=== PATIENT | male | born 1965 | race Caucasian/White ===

== ENCOUNTER 2020-03-26 09:50 | Observation (INO) | payer BC, SELFPAY ==
[2020-03-26] VITALS (14 sets, daily range): BP systolic 140–185; BP diastolic 89–114; PULSE 63–99; RESP 12–20; TEMP 36.2–36.7; O2SAT 92–99; BMI 35.0
--- NOTE | 2020-03-26 09:54 | ED_ITS ---
HPI - General Adult General Chief complaint: Upper Respiratory Symptoms Stated complaint: Hard time Breathing on and off Time Seen by Provider: 03/26/20 09:51 Source: patient Mode of arrival: Ambulatory Limitations: no limitations History of Present Illness HPI narrative: 57-year-old male here for evaluation of what he states is a swollen throat and a hard time breathing. States that last evening and went to bed in his normal state health. Woke up early this morning with what he thought was a swollen throat and hard time breathing. He states that very quickly after he woke up he felt like things ?opened up ?and very shortly after that he had a resolution of symptoms back to his baseline. He then took his morning blood pressure medications. Went to work and stated that the symptoms happened again. He states the was not as bad this time as it was 1st thing in the morning. He states that currently his symptoms have improved somewhat from the 2nd onset however he has not back at baseline. He states he feels like he can feel the uvula on the back of his throat. He does not have a sore throat. No sinus congestion. No coughing. He states that several months ago he had medications changed by his smt technician. He does not know what medications he was on over is currently on. He states that he has since run out of these new medications and has not been able to get in to see his smt technician so he started taking his old medications once again. He does not 1 of those medications is lisinopril however he has never had any issues like this in the past. Related Data Home Medications Medication Instructions Recorded Confirmed aspirin 81 mg PO DAILY 03/26/20 03/26/20 atorvastatin 40 mg PO DAILY 03/26/20 03/26/20 lisinopril-hydrochlorothiazide 1 tab PO DAILY 03/26/20 03/26/20 Allergies Allergy/AdvReac Type Severity Reaction Status Date / Time No Known Drug Allergies Allergy Verified 03/26/20 10:08 Review of Systems Constitutional Constitutional: Denies fever(s) and Denies headache(s) Eyes Eyes: Denies change in vision ENT Ears, Nose, Mouth, and Throat: Reports dry mouth, Denies headache(s), Denies hoarseness, Denies lip swelling, Denies nasal congestion, Denies nasal discharge, Denies neck mass, Denies post nasal drip, Denies sore throat and Reports throat swelling Comments: Lip tingling Cardiovascular Cardiovascular: Denies chest pain and Reports dyspnea Respiratory Respiratory: Denies cough and Reports dyspnea Gastrointestinal Gastrointestinal: Denies abdominal pain, Denies nausea and Denies vomiting Musculoskeletal Musculoskeletal: Denies myalgias and Denies arthralgias Integumentary/Breasts Skin/Breast: Denies lesions and Denies rash Neurologic Neurologic: Denies behavioral changes and Denies headache(s) Psychiatric Psychiatric: Denies behavioral changes Hematologic/Lymphatic Hematologic/Lymphatic: Denies easy bleeding and Denies easy bruising Allergic/Immunologic Allergic/Immunologic: Denies lip swelling and Reports throat swelling Patient History Medical History Hyperlipidemia (Acute) Hypertension (Acute) Social History Smoking Status: Never smoker Exam Initial Vital Signs Initial Vital Signs: Vital Signs Pulse Rate 94 H 03/26/20 09:50 Respiratory Rate 20 03/26/20 09:50 Blood Pressure 185/107 H 03/26/20 09:50 Pulse Oximetry 99 03/26/20 09:50 Const General: cooperative, comfortable, well developed and well groomed Limitations: mental status not altered HENMT Head: normal to inspection and normocephalic Ears: TM's normal bilaterally Nose: external nose normal and nares normal Face and sinus: normal facial exam Mouth: oral mucosae normal, lip normal, No drooling and No muffled voice Teeth and gingiva: dentition normal Throat: uvula midline, abnormal tonsil bilaterally hypertrophy; no erythema and uvular edema Neck Neck: full ROM Lymphatic: No lymphedema and No lymphadenopathy Resp Effort & Inspection: normal respiratory effort Auscultation: clear to auscultation bilaterally Cardio Rate: regular rate Rhythm: regular rhythm Skin Lesions: no lesions Rashes: no rashes Neuro General: alert, awake and oriented x3 Cognition: normal cognition Speech: speech normal Extrem General: normal to inspection and capillary refill normal Psych Appearance: grossly normal and well kempt Course Orders Ordered: ED Orders 03/26/20 10:00 Complete Blood Count AUTO DIFF Stat Comprehensive Metabolic Panel Stat Lipase Stat Procalcitonin Stat Troponin I Stat 03/26/20 10:02 EKG-12 Lead Stat 03/26/20 10:16 CT soft tissue neck w con Stat Discontinued Medications Diphenhydramine HCl (Benadryl) 25 mg IV NOW ONE Stop: 03/26/20 10:07 Last Admin: 03/26/20 10:09 Dose: 25 mg Documented by: PAPITO Methylprednisolone (Solu-Medrol 125 Mg Vial) 125 mg IV NOW ONE Stop: 03/26/20 10:07 Last Admin: 03/26/20 10:09 Dose: 125 mg Documented by: PAPITO Metoprolol Tartrate (Lopressor) 50 mg PO NOW ONE Stop: 03/26/20 12:14 Vital Signs Vital signs: Vital Signs - 8 hr 03/26/20 09:50 03/26/20 10:17 03/26/20 10:57 Pulse Rate 94 H 98 H 79 Respiratory Rate 20 20 14 Blood Pressure 185/107 H Blood Pressure [Left Arm] 178/105 H 165/98 H Pulse Oximetry 99 94 94 03/26/20 11:21 Pulse Rate 85 Respiratory Rate 16 Blood Pressure Blood Pressure [Left Arm] 167/109 H Pulse Oximetry 97 Medical Decision Making Lab Data Lab results reviewed: Yes I reviewed the patient's lab results. Result diagrams: 03/26/20 10:00 03/26/20 10:00 Labs: Lab Results 03/26/20 03/26/20 03/26/20 Range/Units 10:00 10:00 10:00 WBC 4.0 L (4.5-11.0) X10^3/uL RBC 4.52 (4.5-5.9) X10^6/uL Hgb 14.6 (13.5-17.5) g/dL Hct 41.9 (41-53) % MCV 92.8 (80-100) fL MCH 32.2 (26-34) PG MCHC 34.7 (30-36) % RDW 13.6 (11.6-14.8) % Plt Count 199 (150-400) X10^3/uL Neut % (Auto) 51.5 (50-75) % Lymph % (Auto) 38.4 (25-40) % [place] % (Auto) 7.4 (3-14) % Eos % (Auto) 1.5 L (2-4) % Baso % (Auto) 1.2 (0-2) % Neut # (Auto) 2000 (6316-6321) /uL Lymph # (Auto) 1500 (3021-0879) /uL [place] # (Auto) 300 (0-900) /uL Eos # (Auto) 100 (0-450) /uL Baso # (Auto) 0 (0-100) /uL Sodium 137 (137-145) mmol/L Potassium 4.1 (3.4-5.1) mmol/L Chloride 108 H (98-107) mmol/L Carbon Dioxide 23 (22-32) mmol/L BUN 18 (9-20) mg/dL Creatinine 1.14 (0.66-1.25) mg/dL Estimated GFR > 60.0 (>60) mL/min BUN/Creatinine Ratio 15.8 (6-22) Glucose 135 H (70-100) mg/dL Calcium 9.1 (8.4-10.2) mg/dL Total Bilirubin 0.4 (0.2-1.3) mg/dL AST 28 (17-59) IU/L ALT 30 (<50) IU/L Alkaline Phosphatase 77 (38-126) U/L Troponin I < 0.012 (0.01-0.034) ng/mL Total Protein 7.6 (6.3-8.2) g/dL Albumin 4.4 (3.5-5.0) g/dL Globulin 3.2 (1.7-4.1) g/dL Albumin/Globulin Ratio 1.4 (1.0-2.8) Lipase 233 (23-300) U/L Procalcitonin < 0.05 (<0.5) ng/mL Imaging Data CT soft tissue neck: Radiologist's Impression: [address] [address] [address] Scan Report Signed Patient: Logan Springer [facility]#: [id number] : 1965Acct:[id number] Age/Sex: 54 / MDate of Service: 03/26/20 Loc: ED Accession Number: [id number] Procedure: CT soft tissue neck w con Ordering Provider: Luis Reveles D.O. PROCEDURE: CT SOFT TISSUE NECK W CON INDICATIONS: Swollen throat TECHNIQUE: After the administration of intravenous contrast, 3.0 mm axial sections acquired from the sella to the aortic arch. Additional oblique axial 3.0 mm sections acquired through the pharynx. 3 mm thick coronal and sagittal reformats were generated. For radiation dose reduction, the following was used: automated exposure control. COMPARISON: None. FINDINGS: Image quality: Excellent. Lymph nodes: No enlarged lymph nodes seen throughout the neck. Vessels: Visualized vasculature appears patent. Neck spaces: The oropharynx, nasopharynx, and pharynx demonstrate no mucosal lesions. The vocal cords, false vocal cords, pyriform sinuses, epiglottis, vallecula, and tongue base all appear normal. Extramucosal spaces appear unremarkable except for relative prominence of soft tissue thickening at the tonsillar pillars bilaterally and the adenoidal area.. Glands: The parotid and submandibular glands appear normal. Thyroid gland appears normal where well seen except for what appears to be a 1.4 cm thyroid nodule posteriorly at the right mid gland. Miscellaneous: Visualized brain and orbits appear normal. Lung apices appear clear. Superficial soft tissues appear normal. Bones: No suspicious bony lesions. Visualized sinuses and mastoids appear unremarkable. IMPRESSION: A parapharyngeal abscess is not found. No adenopathy is seen. Note is made of prominence of the soft tissues at the tonsillar pillars bilaterally and the adenoidal area symmetrically. Etiology is indeterminate but most likely inflammatory in this clinical circumstance. Incidental note is made of what appears to be 1.4 cm nodule at the posterior aspect of the middle third of the right thyroid lobe. Dictated by: Gordon Crews M.D. on 03/26/2020 at 11:12 Approved by: Gordon Crews M.D. on 03/26/2020 at 11:16 ECG Data Attestation: I personally reviewed and interpreted this ECG as follows: Prior ECG tracings: not available for review Interpretation: Normal sinus rhythm Ventricular rate 81 Normal QRS Normal QTC No ST T wave changes MDM Narrative Medical decision making narrative: Patient maintaining secretions. Does have some oropharyngeal swelling on exam. CT scan shows soft tissue swelling in this area but no signs of deep abscess. Patient does not have any other symptoms that I would be concerned about anaphylaxis. I do have concern that potentially his lisinopril is causing angioedema. His tongue is not swollen. Oxygen saturations unremarkable. Has not required oxygen. Is also tolerating ice chips. Was given Solu-Medrol and Benadryl. I feel that given the location of the swelling admission to the hospital for airway watch is warranted. Patient understands this. Discussed the case with Dr. Starr who will admit for further evaluation and treatment. Discharge Plan Departure Patient Disposition: Admitted as Observation Clinical Impression: Angioedema Qualifiers: Encounter type: initial encounter Qualified Code(s): T78.3XXA - Angioneurotic edema, initial encounter Hypertension Qualifiers: Hypertension type: unspecified Qualified Code(s): I10 - Essential (primary) hypertension
[2020-03-26] MEDS: diphenhydrAMINE 50 MG/ML VIAL 25 MG IV (10:09)
[2020-03-26] MEDS: methylPREDNISolone 125 MG/2 ML VIAL IV (10:09)
[2020-03-26 10:14] LABS: Add Manual Diff / Slide Review NO; Basophils Absolute Auto 0 /uL (0-100); Basophils Percent Auto 1.2 % (0-2); Eosinophils Absolute Auto 100 /uL (0-450); Eosinophils Percent Auto 1.5 % (2-4); Hematocrit 41.9 % (41-53); Hemoglobin 14.6 g/dL (13.5-17.5); Lymphocytes Absolute Auto 1500 /uL (1100-4500); Lymphocytes Percent Auto 38.4 % (25-40); Mean Corpuscular HGB Conc 34.7 % (30-36); Mean Corpuscular Hemoglobin 32.2 PG (26-34); Mean Corpuscular Volume 92.8 fL (80-100); Monocytes Absolute Auto 300 /uL (0-900); Monocytes Percent Auto 7.4 % (3-14); Neutrophils Absolute Auto 2000 /uL (1500-7000); Neutrophils Percent Auto 51.5 % (50-75); Platelet Count 199 X10^3/uL (150-400); Red Blood Cell Count 4.52 X10^6/uL (4.5-5.9); Red Cell Distribution Width 13.6 % (11.6-14.8)
--- NOTE | 2020-03-26 10:16 | DI.CT.S_ITS ---
PROCEDURE: CT SOFT TISSUE NECK W CON INDICATIONS: Swollen throat TECHNIQUE: After the administration of intravenous contrast, 3.0 mm axial sections acquired from the sella to the aortic arch. Additional oblique axial 3.0 mm sections acquired through the pharynx. 3 mm thick coronal and sagittal reformats were generated. For radiation dose reduction, the following was used: automated exposure control. COMPARISON: None. FINDINGS: Image quality: Excellent. Lymph nodes: No enlarged lymph nodes seen throughout the neck. Vessels: Visualized vasculature appears patent. Neck spaces: The oropharynx, nasopharynx, and pharynx demonstrate no mucosal lesions. The vocal cords, false vocal cords, pyriform sinuses, epiglottis, vallecula, and tongue base all appear normal. Extramucosal spaces appear unremarkable except for relative prominence of soft tissue thickening at the tonsillar pillars bilaterally and the adenoidal area.. Glands: The parotid and submandibular glands appear normal. Thyroid gland appears normal where well seen except for what appears to be a 1.4 cm thyroid nodule posteriorly at the right mid gland. Miscellaneous: Visualized brain and orbits appear normal. Lung apices appear clear. Superficial soft tissues appear normal. Bones: No suspicious bony lesions. Visualized sinuses and mastoids appear unremarkable. IMPRESSION: A parapharyngeal abscess is not found. No adenopathy is seen. Note is made of prominence of the soft tissues at the tonsillar pillars bilaterally and the adenoidal area symmetrically. Etiology is indeterminate but most likely inflammatory in this clinical circumstance. Incidental note is made of what appears to be 1.4 cm nodule at the posterior aspect of the middle third of the right thyroid lobe. Dictated by: Gordon Crews M.D. on 03/26/2020 at 11:12 Approved by: Gordon Crews M.D. on 03/26/2020 at 11:16
--- NOTE | 2020-03-26 10:20 | PC.NURSE ---
Pt states difficulty breathing woke him @ 3 am. He states he felt like his throat was swollen and he had difficulty swallowing. He states it stopped quickly after feeling a pop and he went back to sleep. Then woke up feeling well, took lisinopril and went to work. At work felt increased shortness of breath and came to ED. Pt has swelling in oropharenx. He states it is difficult to swallow. He is able to speak w/ normal voice. Currently feels as if difficulty breathing is 5/10. (was 08/18 at 0300). Aware of NPO status.
[2020-03-26 10:24] LABS: Alanine Aminotransferase 30 IU/L (<50); Albumin 4.4 g/dL (3.5-5.0); Albumin Globulin Ratio 1.4 (1.0-2.8); Alkaline Phosphatase 77 U/L (38-126); Aspartate Aminotransferase 28 IU/L (17-59); BUN Creatinine Ratio 15.8 (6-22); Bilirubin Total 0.4 mg/dL (0.2-1.3); Blood Urea Nitrogen 18 mg/dL (9-20); Calcium 9.1 mg/dL (8.4-10.2); Carbon Dioxide 23 mmol/L (22-32); Chloride 108 mmol/L (98-107); Estimated Glomerular Filt Rate > 60.0 mL/min (>60); Globulin 3.2 g/dL (1.7-4.1); Glucose 135 mg/dL (70-100); HEMOLYSIS 20 (0-50); Lipase 233 U/L (23-300); Potassium 4.1 mmol/L (3.4-5.1); Sodium 137 mmol/L (137-145); Total Protein 7.6 g/dL (6.3-8.2)
[2020-03-26 10:34] LABS: Troponin I < 0.012 ng/mL (0.01-0.034)
[2020-03-26 10:57] LABS: Procalcitonin < 0.05 ng/mL (<0.5)
--- NOTE | 2020-03-26 11:22 | PC.NURSE ---
Patient ambulated up to the bathroom approx 20 ft. He reported a slight shortness of breath but was much better than when he came in. He was not dizzy or unstable. BP when he layed back down was high (190/108). 5 minutes after returning to the supine position his BP was 167/109.
[2020-03-26] MEDS: METOPROLOL IR 25 MG TABLET 50 MG PO (12:26)
--- NOTE | 2020-03-26 14:51 | P.HP_ITS ---
History of Present Illness History of Present Illness Date Patient Seen: 03/26/20 Time Patient Seen: 14:30 Chief complaint: Hard time Breathing on and off Narrative: Patient is a 54-year-old male with history of hypertension, hyperlipidemia presented to ED with complaints of acute throat irritation and swelling. Symptoms woke him up from sleep. He felt a sensation of or lump in his throat and hard time breathing. He had symptom resolution after a brief time. However his symptoms recurred later this morning. Patient has been on lisinopril for the past decade. He states he was in the ER about 3 months ago with complaints of chest pain and the box toe flanger stitchdowns adjusted his blood pressure medicines at that time. They stopped his lisinopril HCT and started him on lisinopril and metoprolol tartrate. Patient was faithfully taking these medications until he ran out a couple days ago when his appointment got canceled. He then started himself on previous prescription of lisinopril HCT until he could get a refill of current meds. Patient denies history of [place], TIA or stroke. He was treated with methylprednisolone and Benadryl in the ED. At time of this exam he still has sensation of throat swelling which she states is not worse. His O2 sats are 93-94% room air. Patient History Medical History Hyperlipidemia (Acute) Hypertension (Acute) Family & Social History Social History: household members children Prior Living Arrangements House Safety & Behavioral: Feels Safe in Current Yes Environment Been Physically Hurt or No Threatened By a Person Suicidal Ideation Description None Suicide Plan Description No Plan Tobacco & Substance use: Smoking Status Never smoker alcohol intake frequency 0-2 drinks per day Substance Use Type does not use Meds Home Medications and Allergies Home Medications Medication Instructions Recorded Confirmed Type aspirin 81 mg PO DAILY 03/26/20 03/26/20 History atorvastatin 40 mg PO DAILY 03/26/20 03/26/20 History lisinopril-hydrochlorothiazide 1 tab PO DAILY 03/26/20 03/26/20 History Allergies Allergy/AdvReac Type Severity Reaction Status Date / Time No Known Drug Allergies Allergy Verified 03/26/20 10:08 Review of Systems Review of Systems ROS: Yes All systems reviewed with the patient and are negative except as oth erwise documented Exam Vital Signs (past 8 hours): - 03/26/20 09:50 03/26/20 10:17 03/26/20 10:57 Pulse Rate 94 H 98 H 79 Respiratory Rate 20 20 14 Blood Pressure 185/107 H Blood Pressure [Left Arm] 178/105 H 165/98 H Pulse Oximetry 99 94 94 03/26/20 11:21 03/26/20 12:00 03/26/20 12:30 Pulse Rate 85 74 73 Respiratory Rate 16 17 12 Blood Pressure Blood Pressure [Left Arm] 167/109 H 161/114 H 154/100 H Pulse Oximetry 97 94 94 03/26/20 13:00 03/26/20 13:30 03/26/20 14:31 Pulse Rate 63 65 Respiratory Rate 12 16 Blood Pressure Blood Pressure [Left Arm] 140/89 149/108 H Pulse Oximetry 93 95 96 Oxygen Delivery Method Room Air Oxygen Flow Rate 0 Narrative Exam Narrative: GENERAL: This is an alert well-nourished, well-developed patient, in no apparent distress. HEAD: No periorbital, lip or facial swelling EYES: Pupils equal, round and reactive. Extraocular motions intact. No scleral icterus. No injection or drainage. OROPHARYNX: The tongue appears mildly diffusely swollen. The posterior pharynx is incompletely visualized but not obviously swollen. NECK: Trachea midline. No JVD or lymphadenopathy. No obvious soft tissue edema. CARDIOVASCULAR: Regular rate and rhythm without murmurs, gallops, or rubs. RESPIRATORY: Clear to auscultation bilaterally. GASTROINTESTINAL: Abdomen nondistended, soft, non-tender. No hepato- splenomegaly, or palpable masses. EXTREMITIES: No edema. NEUROLOGICAL: Alert, well oriented, speech is intact, normal bilateral upper and lower extremity strength SKIN: warm, dry, no rash Objective Labs Result Diagrams: 03/26/20 10:00 03/26/20 10:00 Labs: Laboratory Results - last 24 hr 03/26/20 03/26/20 03/26/20 10:00 10:00 10:00 WBC 4.0 L RBC 4.52 Hgb 14.6 Hct 41.9 MCV 92.8 MCH 32.2 MCHC 34.7 RDW 13.6 Plt Count 199 Neut % (Auto) 51.5 Lymph % (Auto) 38.4 [place] % (Auto) 7.4 Eos % (Auto) 1.5 L Baso % (Auto) 1.2 Neut # (Auto) 2000 Lymph # (Auto) 1500 [place] # (Auto) 300 Eos # (Auto) 100 Baso # (Auto) 0 Sodium 137 Potassium 4.1 Chloride 108 H Carbon Dioxide 23 BUN 18 Creatinine 1.14 Estimated GFR > 60.0 BUN/Creatinine Ratio 15.8 Glucose 135 H Calcium 9.1 Total Bilirubin 0.4 AST 28 ALT 30 Alkaline Phosphatase 77 Troponin I < 0.012 Total Protein 7.6 Albumin 4.4 Globulin 3.2 Albumin/Globulin Ratio 1.4 Lipase 233 Procalcitonin < 0.05 Assessment & Plan Assessment & Plan narrative: 1. Acute TAM-inhibitor angioedema -patient with 1st episode angioedema likely TAM-inhibitor related without other obvious cause -discontinued lisinopril -admitted to observation for airway and cardiac monitoring, noting O2 sats 93- 94% room air slightly low 2. Chronic hypertension -initial BP 185/107, BP currently remains moderately elevated after patient received oral metoprolol -patient had been on metoprolol tartrate 25 mg q.d. and lisinopril 10 mg q.d. up until 2 days ago -discontinue lisinopril -resume metoprolol in succinate form, metoprolol succinate 25 mg q.d. -in a.m. start losartan 50 mg q.d., angiotensin receptor blockers have been shown safe in patients with history of TAM-inhibitor angioedema and in fact ARBs are associated with lower risk of angioedema in these patients than other blood pressure classes -patient sees unknown box toe flanger stitchdowns at [facility] for BP management 3. Hyperlipidemia -resume atorvastatin 40 mg HS and aspirin 81 mg daily Admitted to observation. Quality VTE Deep Vein Thrombosis/Pulmonary Embolism Present on Admission: No
--- NOTE | 2020-03-26 15:41 | PC.ADMIT ---
Admission Note: Late entry- Patient arrived to room 220 approx 1340. Alert and oriented X3. Steady on feet without assistive device. Reports tongue and throat still feel a little swollen and states his throat is sore. Denied any difficulty breathing or swallowing, ate a late lunch without issue. Lungs CTA. Room air, cont pulse ox in place. Tele unit placed, reading normal sinus rhythm per RADIO COMMUNICATION COORDINATOR. HRR to auscultation. Oriented to room and call light and encouraged to make needs known. Came out as low fall risk. Given ok to get up to BR independently, asked that he let nursing staff know so we can document I&O's and he was agreeable. Resting quietly in bed now. Call light and belongings within reach. The patient,Logan Springer,54 y/o, was given written information regarding hospital policies, unit procedures and contact persons. Patient's smoking status: Never smoker. Vital Signs - 8 hr 03/26/20 09:50 03/26/20 10:17 03/26/20 10:57 Temperature Pulse Rate 94 H 98 H 79 Respiratory Rate 20 20 14 Blood Pressure 185/107 H Blood Pressure [Left Arm] 178/105 H 165/98 H Pulse Oximetry 99 94 94 03/26/20 11:21 03/26/20 12:00 03/26/20 12:30 Temperature Pulse Rate 85 74 73 Respiratory Rate 16 17 12 Blood Pressure Blood Pressure [Left Arm] 167/109 H 161/114 H 154/100 H Pulse Oximetry 97 94 94 03/26/20 13:00 03/26/20 13:30 03/26/20 13:40 Temperature 97.6 F Pulse Rate 63 65 75 Respiratory Rate 12 16 18 Blood Pressure 151/105 H Blood Pressure [Left Arm] 140/89 149/108 H Pulse Oximetry 93 95 95 03/26/20 14:31 Temperature Pulse Rate Respiratory Rate Blood Pressure Blood Pressure [Left Arm] Pulse Oximetry 96
--- NOTE | 2020-03-26 17:23 | PC.NURSE ---
Pt watching at this time. Denies discomfort or difficulty swallowing, Continuous pulse ox 95% RA, lungs clear T/O Tele shows NSR per ICU staff. HL right wrist intact/patent. Call light w/in reach, pt independent to BR w/o incidence.
[2020-03-26] MEDS: INFLUENZA VACCINE 0.5 ML SYRINGE IM (20:01)
[2020-03-26] MEDS: SODIUM CHLORIDE 0.9% FLUSH 10 ML IV (20:03)
[2020-03-27 05:58] VITALS: BP 147/102; PULSE 81; RESP 16; TEMP 37.3; O2SAT 96
--- NOTE | 2020-03-27 08:52 | PM.DS.1 ---
History of Present Illness History of Present Illness Date Patient Seen: 03/27/20 Time Patient Seen: 08:52 Chief complaint: Hard time Breathing on and off Narrative: As per Dr. Guadarrama: Patient is a 54-year-old male with history of hypertension, hyperlipidemia presented to ED with complaints of acute throat irritation and swelling. Symptoms woke him up from sleep. He felt a sensation of or lump in his throat and hard time breathing. He had symptom resolution after a brief time. However his symptoms recurred later this morning. Patient has been on lisinopril for the past decade. He states he was in the ER about 3 months ago with complaints of chest pain and the president finance company adjusted his blood pressure medicines at that time. They stopped his lisinopril HCT and started him on lisinopril and metoprolol tartrate. Patient was faithfully taking these medications until he ran out a couple days ago when his appointment got canceled. He then started himself on previous prescription of lisinopril HCT until he could get a refill of current meds. Patient denies history of [place], TIA or stroke. He was treated with methylprednisolone and Benadryl in the ED. At time of this exam he still has sensation of throat swelling which she states is not worse. His O2 sats are 93-94% room air. Discharge Providers Provider Date of admission: 03/26/20 12:18 Discharge Date: 03/27/20 Discharge provider: Gianluca Freeman DO Summary Hospital Course Discharge Diagnosis: 1. Acute TAM-inhibitor angioedema, present on admission, resolved 2. Chronic hypertension 3. Hyperlipidemia, chronic Hospital Course: Logan Springer is a 54-year-old male with past medical history of hypertension hyperlipidemia who presented with acute onset swelling. He reported recently taking a higher dose of lisinopril after he ran out of his current dosing. He does not report the medication is . Given this, etiology is most likely due to lisinopril and this class of medications was held. He developed no further swelling and denied complaints the next morning, and was stable for discharge home. Patient had adequately controlled blood pressures after starting HCTZ and metoprolol. He was discharged on a combination pill of these 2 medications and will follow-up with his primary care provider for further blood pressure management. Status at Discharge Overall status at discharge: patient is back to baseline Time Spent with Patient Time spent: Less than 30 minutes Exam Vital Signs (past 8 hours): - 03/27/20 05:58 Temperature 99.1 F Pulse Rate 81 Respiratory Rate 16 Blood Pressure 147/102 H Pulse Oximetry 96 Oxygen Delivery Method Room Air Oxygen Flow Rate 0 Narrative Exam Narrative: GENERAL APPEARANCE: Well developed, well nourished, in no acute distress. SKIN: Inspection of the skin reveals no rashes, ulcerations or petechiae. HEENT: Normocephalic atraumatic, extraocular muscles are intact, oropharynx is clear and mucous membranes are moist, neck is supple without adenopathy. Mild macroglossia but no overt swelling. NECK: Supple and symmetric. There was no thyroid enlargement, and no tenderness, or masses were felt. CHEST: Normal AP diameter and normal contour without any kyphoscoliosis. LUNGS: Auscultation of the lungs revealed no wheezes, rhonchi, or rales. CARDIOVASCULAR: There was a regular rate and rhythm without any murmurs, gallops, rubs. Peripheral pulses were 2+ and symmetric. ABDOMEN: Soft and nontender with normal bowel sounds. No ascites was noted. MUSCULOSKELETAL: There was no tenderness or effusions noted. Muscle strength and tone were normal. EXTREMITIES: No cyanosis, clubbing or edema. NEUROLOGIC: Alert and oriented x 3. Normal affect. Gait was normal. Strength is +5/5 in the Upper Extremities and Lower Extremities Bilaterally. Sensation to touch was normal. Objective Labs Result Diagrams: 03/26/20 10:00 03/26/20 10:00 Labs: Laboratory Results - last 24 hr 03/26/20 03/26/20 03/26/20 10:00 10:00 10:00 WBC 4.0 L RBC 4.52 Hgb 14.6 Hct 41.9 MCV 92.8 MCH 32.2 MCHC 34.7 RDW 13.6 Plt Count 199 Neut % (Auto) 51.5 Lymph % (Auto) 38.4 [place] % (Auto) 7.4 Eos % (Auto) 1.5 L Baso % (Auto) 1.2 Neut # (Auto) 2000 Lymph # (Auto) 1500 [place] # (Auto) 300 Eos # (Auto) 100 Baso # (Auto) 0 Sodium 137 Potassium 4.1 Chloride 108 H Carbon Dioxide 23 BUN 18 Creatinine 1.14 Estimated GFR > 60.0 BUN/Creatinine Ratio 15.8 Glucose 135 H Calcium 9.1 Total Bilirubin 0.4 AST 28 ALT 30 Alkaline Phosphatase 77 Troponin I < 0.012 Total Protein 7.6 Albumin 4.4 Globulin 3.2 Albumin/Globulin Ratio 1.4 Lipase 233 Procalcitonin < 0.05 Discharge Plan Discharge Plan Patient Disposition: Home Discharge comment: You were admitted to the hospital with angioedema, most likely due to lisinopril. This medication was discontinued and you were started on an alternative therapy. Please follow up with your provider before the end of the month to continue these medications or they may make small dose adjustments. Discharge orders & Medications Prescriptions: New metoprolol pitts-hydrochlorothiaz 25-12.5 mg tablet extended release 24 hr 1 tab PO DAILY 30 Days Qty: 30 RF: 0 Continued aspirin 81 mg tablet,delayed release (DR/EC) 81 mg PO DAILY RF: 0 atorvastatin 40 mg tablet 40 mg PO DAILY 30 Days Qty: 30 RF: 0 Discontinued lisinopril-hydrochlorothiazide 20-25 mg tablet 1 tab PO DAILY RF: 0 No Action lisinopril 20 MG tablet 20 mg PO QDAY Qty: 0 RF: 0 hydrochlorothiazide 25 MG tablet 25 mg PO QDAY Qty: 30 RF: 0 Visit Report/Discharge Packet Instructions: DI for Angioedema, Hydrochlorothiazide, Metoprolol Discharge Data Attending Provider: Luis Starr Admit Date/Time: 03/26/20 12:18 Discharges patient from system. Discharge Date/Time: 03/27/20 11:39 Quality VTE Deep Vein Thrombosis/Pulmonary Embolism Present on Admission: No
[2020-03-27 09:00] VITALS: BP 153/98; PULSE 76; RESP 18; TEMP 36.6; O2SAT 91; O2SAT 96
[2020-03-27] MEDS: SODIUM CHLORIDE 0.9% FLUSH 10 ML IV (09:13)
[2020-03-27] MEDS: METOPROLOL ER 25 MG TABLET PO (09:13)
[2020-03-27] MEDS: hydroCHLOROthiazide 12.5 MG CAPSULE PO (09:14)
[2020-03-27 09:50] VITALS: BP 158/84; PULSE 91
[2020-03-27 10:12] VITALS: BP 158/84; PULSE 78
[2020-03-27 10:55] VITALS: BP 142/96; PULSE 96
--- NOTE | 2020-03-27 11:32 | PC.NURSE ---
Discharge: IV dc'd intact. Tele dc'd. Tolerated Metoprolol/HCTZ without s/sx adverse reaction, see vitals as charted. Reviewed all d/c instructions thoroughly. Given paper script for Atorvastatin, informed that other script was sent electronically to his pharmacy and to hand picker and take as directed (starting tomorrow a.m.). He has already made a F/U appt with his PCP for within the month. Instructed to call 911 with any new onset face/throat swelling, difficulty breathing or swallowing. Patient verbalized understanding of all d/c info and stated no further questions. All personal belongings sent with patient including glasses, clothing, cellphone/radiologist diagnostic, wallet and keys. Walked out to private vehicle accompanied by this bid writer.
--- NOTE | 2020-03-27 15:36 | CM.DANOTE ---
DCP: Case received, EMR reviewed. Patient already left hospital. Was able to obtain information from patient's chart to complete DCP assessment. Patient is a 54 year old male who admitted yesterday to the care of the hospitalist team. PCP: Unknown, but does see a manager reading at [facility]. Payer: confirmed: [facility] Out of [facility]. Patient came to the hospital due to difficulty breathing, and complaints of feeling like there was a lump in his throat. Patient holds diagnosis of angioedema secondary to a medication. Patient resides in [place]. According to notes, he is employed at [employer]. Patient also has history of HTN, which has been treated with medications. Patient is , according to notes, and has a son named Jagdish. P: Patient was discharged home with some changes in his blood pressure medications. Dayna Edwards RN/[employer] Operator
== END 2020-03-27 11:39 | disposition home or self-care (01) ==
LOC: ED 12:01 → AC 12:19
PROVIDERS: Admitting Provider Internal Medicine; Emergency Provider Emergency Medicine; Referring Provider Emergency Medicine; Visit Provider Internal Medicine
DX: T78.3XXA Angioneurotic edema, initial encounter (principal); R06.02 Shortness of breath; E78.5 Hyperlipidemia, unspecified; I10 Essential (primary) hypertension; Z23 Encounter for immunization
CPT/HCPCS: 36415; 70491; 80053; 83690; 84145; 84484; 85025; 90471; 90656; 93005; 94762; 96374; 96375; 99284; G0378; J1200; J2930; Q2038; Q9967

== ENCOUNTER 2022-03-20 05:58 | Observation (INO) | payer BC, SELFPAY ==
[2020-03-26 13:58] VITALS: BMI 35.0
[2022-03-20] VITALS (11 sets, daily range): BP systolic 107–161; BP diastolic 70–90; PULSE 64–97; RESP 14–21; TEMP 36.1–36.6; O2SAT 93–98; BMI 34.2
--- NOTE | 2022-03-20 06:09 | ED.CHESTPAIN ---
HPI - Chest Pain <Bee Hernandes DO - Last Filed: 03/21/22 07:37> General Chief Complaint: Chest Pain Stated Complaint: chest pain Time Seen by Provider: 03/20/22 06:09 Source: patient Mode of arrival: Ambulatory Limitations: no limitations Limitations: no limitations History of Present Illness HPI narrative: This is a 56-year-old male who developed chest pain and pressure radiating to his left arm and somewhat to his neck yesterday afternoon he states it has been waxing and waning in intensity. Sometimes it has resolved but will reoccur. Nothing seems to exacerbate it, nothing seems to alleviate it. Has felt short of breath he has got diaphoretic with episodes, he has had nausea but no vomiting. He describes as a pressure with occasional sharp pain. He denies any syncope or passing out. He he denies any abdominal or back pain. He does take lisinopril and had a 2nd blood pressure medication added about 2 weeks ago. He denies any daily aspirin or blood thinners. He denies any dyslipidemia medication but has atorvastatin on his EMR. He has had prior shoulder and leg surgery. No cardiac stents but has had stress testing 2 or 3 years ago. No allergies to medications. No tobacco, rare alcohol, no illicit. Patient states no major cardiac history in his family, no embolic history. His primary care is Dr. Oleary in [place]. Related Data Home Medications Medication Instructions Recorded Confirmed lisinopril 20 mg tablet 20 mg PO QDAY #0 02/09/17 03/20/22 hydrochlorothiazide 12.5 mg tablet 12.5 mg PO BID 03/20/22 03/20/22 Allergies Allergy/AdvReac Type Severity Reaction Status Date / Time meperidine [From DEMEROL] Allergy Unknown Verified 03/20/22 06:19 Review of Systems <Bee Hernandes DO - Last Filed: 03/21/22 07:37> Review of Systems ROS Unobtainable: All systems reviewed & are unremarkable except as noted in HPI and below Patient History <Bee Hernandes DO - Last Filed: 03/21/22 07:37> Medical History Hyperlipidemia Hypertension Surgical History H/O shoulder surgery Family History (Updated 03/20/22 @ 12:00 by Gianluca Freeman DO) Mother No pertinent past medical history Father No pertinent past medical history Social History household members: children Smoking Status: Never smoker Smoking Status: Never smoker alcohol intake frequency: 0-2 drinks per day Substance Use Type: does not use Exam <DO Espinoza Hurt Last Filed: 03/21/22 07:37> Narrative Exam Narrative: GENERAL: Alert and oriented x three, in mild distress. HEENT: Head normocephalic, atraumatic, EOMI, pupils reactive, face symmetric, moist mucous membranes NECK: Supple, full range of motion CARDIOVASCULAR: Regular rate and rhythm without murmurs, rubs or gallops. No reproducible chest pain. No JVD. RESPIRATORY: Breath sounds equal bilaterally, no wheezes rales or rhonchi. ABDOMEN: Soft, nontender. Normoactive bowel sounds all 4 quadrants. No guarding or rebound, rigidity, no mass : No CVA tenderness EXTREMITIES: Normal range of motion, no clubbing or edema. Neurovascularly intact NEUROLOGICAL: Cranial nerves II through XII grossly intact. Moving all extremities SKIN: Warm, dry, no petechiae, no rashes or lesions. Initial Vital Signs Initial Vital Signs: Vital Signs Temperature 97.8 F 03/20/22 06:00 Pulse Rate 92 H 03/20/22 06:00 Respiratory Rate 20 03/20/22 06:00 Blood Pressure 161/90 H 03/20/22 06:00 Pulse Oximetry 98 03/20/22 06:00 <Aileen Alves DO - Last Filed: 03/20/22 16:12> Initial Vital Signs Initial Vital Signs: Vital Signs Temperature 97.8 F 03/20/22 06:00 Pulse Rate 92 H 03/20/22 06:00 Respiratory Rate 20 03/20/22 06:00 Blood Pressure 161/90 H 03/20/22 06:00 Pulse Oximetry 98 03/20/22 06:00 Scores <Bee Hernandes DO - Last Filed: 03/21/22 07:37> HEART Score Heart Score history: Highly Suspicious Heart Score EKG: Non-Specific repolarization disturbance Heart Score Age: 45-64 years old Heart Score risk factors: 1-2 risk factors Heart Score troponin: < or = to normal limit Heart Score Total: 5 Course <Bee Hernandes, - Last Filed: 03/21/22 07:37> Orders Ordered: Acetaminophen (Acetaminophen 325 Mg Tablet) 975 mg PO Q8HR PRN PRN Reason: Pain, Mild (1-3) Last Admin: 03/20/22 19:20 Dose: 975 mg Documented by: ZAHIRA Aspirin (Aspirin Ec 81 Mg Tablet) 81 mg PO DAILY FELIX Atorvastatin Calcium (Atorvastatin 20 Mg Tablet) 40 mg PO DAILY FELIX Enoxaparin Sodium (Enoxaparin 40 Mg/0.4 Ml Syringe) 40 mg SUBCUT DAILY FELIX Naloxone HCl (Naloxone 0.4 Mg/Ml Vial) 0.2 mg IV Q2MIN PRN PRN Reason: Opiate Reversal Nitroglycerin (Nitroglycerin 0.4 Mg Sl Tab) 0.4 mg SL [id number] PRN PRN Reason: Chest Pain Last Admin: 03/20/22 06:25 Dose: 0.4 mg Documented by: [email or web address] Ondansetron HCl (Ondansetron 4 Mg/2 Ml Inj) 4 mg IV Q6HR PRN PRN Reason: Nausea And Vomiting Last Admin: 03/20/22 06:53 Dose: 4 mg Documented by: [email or web address] Discontinued Medications Aspirin (Aspirin 81 Mg Chew Tab) 324 mg PO NOW ONE Stop: 03/20/22 06:11 Last Admin: 03/20/22 06:19 Dose: 324 mg Documented by: [email or web address] Morphine Sulfate (Morphine 4 Mg/Ml Inj) 4 mg IV NOW ONE Stop: 03/20/22 06:48 Last Admin: 03/20/22 06:53 Dose: 4 mg Documented by: [email or web address] Morphine Sulfate (Morphine 4 Mg/Ml Inj) 4 mg IV NOW ONE Stop: 03/20/22 07:22 Last Admin: 03/20/22 07:43 Dose: 4 mg Documented by: IDALIA Vital Signs Vital signs: Vital Signs - 8 hr 03/20/22 06:00 03/20/22 06:33 03/20/22 07:16 Temperature 97.8 F Pulse Rate 92 H 97 H 97 H Respiratory Rate 20 21 21 Blood Pressure 161/90 H 107/76 124/79 Pulse Oximetry 98 94 95 <Aileen Alves DO - Last Filed: 03/20/22 16:12> Orders Ordered: Acetaminophen (Acetaminophen 325 Mg Tablet) 975 mg PO Q8HR PRN PRN Reason: Pain, Mild (1-3) Last Admin: 03/20/22 19:20 Dose: 975 mg Documented by: ZAHIRA Aspirin (Aspirin Ec 81 Mg Tablet) 81 mg PO DAILY [facility] Atorvastatin Calcium (Atorvastatin 20 Mg Tablet) 40 mg PO DAILY [facility] Enoxaparin Sodium (Enoxaparin 40 Mg/0.4 Ml Syringe) 40 mg SUBCUT DAILY FELIX Naloxone HCl (Naloxone 0.4 Mg/Ml Vial) 0.2 mg IV Q2MIN PRN PRN Reason: Opiate Reversal Nitroglycerin (Nitroglycerin 0.4 Mg Sl Tab) 0.4 mg SL [id number] PRN PRN Reason: Chest Pain Last Admin: 03/20/22 06:25 Dose: 0.4 mg Documented by: [email or web address] Ondansetron HCl (Ondansetron 4 Mg/2 Ml Inj) 4 mg IV Q6HR PRN PRN Reason: Nausea And Vomiting Last Admin: 03/20/22 06:53 Dose: 4 mg Documented by: [email or web address] Discontinued Medications Aspirin (Aspirin 81 Mg Chew Tab) 324 mg PO NOW ONE Stop: 03/20/22 06:11 Last Admin: 03/20/22 06:19 Dose: 324 mg Documented by: [email or web address] Morphine Sulfate (Morphine 4 Mg/Ml Inj) 4 mg IV NOW ONE Stop: 03/20/22 06:48 Last Admin: 03/20/22 06:53 Dose: 4 mg Documented by: [email or web address] Morphine Sulfate (Morphine 4 Mg/Ml Inj) 4 mg IV NOW ONE Stop: 03/20/22 07:22 Last Admin: 03/20/22 07:43 Dose: 4 mg Documented by: IDALIA Vital Signs Vital signs: Vital Signs - 8 hr 03/20/22 06:00 03/20/22 06:33 03/20/22 07:16 Temperature 97.8 F Pulse Rate 92 H 97 H 97 H Respiratory Rate 20 21 21 Blood Pressure 161/90 H 107/76 124/79 Pulse Oximetry 98 94 95 MDM - Chest Pain <Bee Hernandes DO - Last Filed: 05/13/22 07:37> Lab Data Result diagrams: 03/21/22 05:15 03/21/22 05:15 Labs: Lab Results 03/20/22 03/20/22 03/20/22 Range/Units 06:10 06:10 06:10 WBC 4.9 (4.5-11.0) X10^3/uL RBC 4.93 (4.5-5.9) X10^6/uL Hgb 15.4 (13.5-17.5) g/dL Hct 44.6 (41-53) % MCV 90.3 (80-100) fL MCH 31.3 (26-34) PG MCHC 34.6 (30-36) % RDW 13.0 (11.6-14.8) % Plt Count 189 (150-400) X10^3/uL Neut % (Auto) 57.3 (50-75) % Lymph % (Auto) 32.7 (25-40) % [place] % (Auto) 7.6 (3-14) % Eos % (Auto) 1.4 L (2-4) % Baso % (Auto) 1.0 (0-2) % Neut # (Auto) 2800 (5519-5431) /uL Lymph # (Auto) 1600 (6290-5529) /uL [place] # (Auto) 400 (0-900) /uL Eos # (Auto) 100 (0-450) /uL Baso # (Auto) 0 (0-100) /uL PT 11.4 (10.1-12.7) SECONDS INR 1.0 (0.9-1.3) APTT 29 (26.4-36.2) SECONDS Sodium (137-145) mmol/L Potassium (3.4-5.1) mmol/L Chloride (98-107) mmol/L Carbon Dioxide (22-32) mmol/L BUN (9-20) mg/dL Creatinine (0.66-1.25) mg/dL Estimated GFR (>60) mL/min BUN/Creatinine Ratio (6-22) Glucose (70-100) mg/dL Calcium (8.4-10.2) mg/dL Total Bilirubin (0.2-1.3) mg/dL AST (17-59) IU/L ALT (<50) IU/L Alkaline Phosphatase (38-126) U/L Total Creatine Kinase (55-170) U/L CK-MB (CK-2) (<2.37) ng/mL CK-MB (CK-2) Rel Index (1.5-5.0) % Troponin I (0.01-0.034) ng/mL NT-Pro-B Natriuret Pep 26 (<125) pg/mL Total Protein (6.3-8.2) g/dL Albumin (3.5-5.0) g/dL Globulin (1.7-4.1) g/dL Albumin/Globulin Ratio (1.0-2.8) Lipase (23-300) U/L SARS-CoV-2 (PCR) (Negative) 03/20/22 03/20/22 03/20/22 Range/Units 06:10 07:22 08:09 WBC (4.5-11.0) X10^3/uL RBC (4.5-5.9) X10^6/uL Hgb (13.5-17.5) g/dL Hct (41-53) % MCV (80-100) fL MCH (26-34) PG MCHC (30-36) % RDW (11.6-14.8) % Plt Count (150-400) X10^3/uL Neut % (Auto) (50-75) % Lymph % (Auto) (25-40) % [place] % (Auto) (3-14) % Eos % (Auto) (2-4) % Baso % (Auto) (0-2) % Neut # (Auto) (6731-0153) /uL Lymph # (Auto) (5147-0050) /uL [place] # (Auto) (0-900) /uL Eos # (Auto) (0-450) /uL Baso # (Auto) (0-100) /uL PT (10.1-12.7) SECONDS INR (0.9-1.3) APTT (26.4-36.2) SECONDS Sodium 136 L (137-145) mmol/L Potassium 3.8 (3.4-5.1) mmol/L Chloride 105 (98-107) mmol/L Carbon Dioxide 20 L (22-32) mmol/L BUN 29 H (9-20) mg/dL Creatinine 1.56 H (0.66-1.25) mg/dL Estimated GFR 51 L (>60) mL/min BUN/Creatinine Ratio 18.6 (6-22) Glucose 189 H (70-100) mg/dL Calcium 8.9 (8.4-10.2) mg/dL Total Bilirubin 0.6 (0.2-1.3) mg/dL AST 26 (17-59) IU/L ALT 27 (<50) IU/L Alkaline Phosphatase 85 (38-126) U/L Total Creatine Kinase 132 (55-170) U/L CK-MB (CK-2) 1.41 (<2.37) ng/mL CK-MB (CK-2) Rel Index 1.1 L (1.5-5.0) % Troponin I < 0.012 < 0.012 (0.01-0.034) ng/mL NT-Pro-B Natriuret Pep (<125) pg/mL Total Protein 7.5 (6.3-8.2) g/dL Albumin 4.3 (3.5-5.0) g/dL Globulin 3.2 (1.7-4.1) g/dL Albumin/Globulin Ratio 1.3 (1.0-2.8) Lipase 271 (23-300) U/L SARS-CoV-2 (PCR) Negative (Negative) Imaging Data Chest x-ray: Radiologist's Impression: No acute cardiopulmonary process. ECG Data Attestation: I personally reviewed and interpreted this ECG as follows: Prior ECG tracings: available for review Interpretation: Sinus rhythm with premature atrial complex. Rate of 93 [place] 170 QRS of 104 and QTC of 479. Patient has prior from 03/26/2020 no acute changes appreciated. [facility] Narrative Medical decision making narrative: This is a 56-year-old gentleman with risk factors who comes in with complaint of chest pain, shortness of breath, diaphoresis and concerning symptoms for cardiac cause. Initial EKG does not show acute changes. Initial troponin is negative, chest x-ray and labs do not show other cause. Patient had improvement with nitro but had severe headache given dose of morphine alternatively which also improved both but did not resolve. Patient received aspirin 324 mg. Patient signed out to Dr. Alves while awaiting 2nd troponin, EKG. <Aileen Alves, DO - Last Filed: 03/20/22 16:12> Lab Data Labs: Lab Results 03/20/22 03/20/22 03/20/22 Range/Units 06:10 06:10 06:10 WBC 4.9 (4.5-11.0) X10^3/uL RBC 4.93 (4.5-5.9) X10^6/uL Hgb 15.4 (13.5-17.5) g/dL Hct 44.6 (41-53) % MCV 90.3 (80-100) fL MCH 31.3 (26-34) PG MCHC 34.6 (30-36) % RDW 13.0 (11.6-14.8) % Plt Count 189 (150-400) X10^3/uL Neut % (Auto) 57.3 (50-75) % Lymph % (Auto) 32.7 (25-40) % [place] % (Auto) 7.6 (3-14) % Eos % (Auto) 1.4 L (2-4) % Baso % (Auto) 1.0 (0-2) % Neut # (Auto) 2800 (3546-8729) /uL Lymph # (Auto) 1600 (1146-1188) /uL [place] # (Auto) 400 (0-900) /uL Eos # (Auto) 100 (0-450) /uL Baso # (Auto) 0 (0-100) /uL PT 11.4 (10.1-12.7) SECONDS INR 1.0 (0.9-1.3) APTT 29 (26.4-36.2) SECONDS Sodium (137-145) mmol/L Potassium (3.4-5.1) mmol/L Chloride (98-107) mmol/L Carbon Dioxide (22-32) mmol/L BUN (9-20) mg/dL Creatinine (0.66-1.25) mg/dL Estimated GFR (>60) mL/min BUN/Creatinine Ratio (6-22) Glucose (70-100) mg/dL Calcium (8.4-10.2) mg/dL Total Bilirubin (0.2-1.3) mg/dL AST (17-59) IU/L ALT (<50) IU/L Alkaline Phosphatase (38-126) U/L Total Creatine Kinase (55-170) U/L CK-MB (CK-2) (<2.37) ng/mL CK-MB (CK-2) Rel Index (1.5-5.0) % Troponin I (0.01-0.034) ng/mL NT-Pro-B Natriuret Pep 26 (<125) pg/mL Total Protein (6.3-8.2) g/dL Albumin (3.5-5.0) g/dL Globulin (1.7-4.1) g/dL Albumin/Globulin Ratio (1.0-2.8) Lipase (23-300) U/L SARS-CoV-2 (PCR) (Negative) 03/20/22 03/20/22 03/20/22 Range/Units 06:10 07:22 08:09 WBC (4.5-11.0) X10^3/uL RBC (4.5-5.9) X10^6/uL Hgb (13.5-17.5) g/dL Hct (41-53) % MCV (80-100) fL MCH (26-34) PG MCHC (30-36) % RDW (11.6-14.8) % Plt Count (150-400) X10^3/uL Neut % (Auto) (50-75) % Lymph % (Auto) (25-40) % [place] % (Auto) (3-14) % Eos % (Auto) (2-4) % Baso % (Auto) (0-2) % Neut # (Auto) (2591-9804) /uL Lymph # (Auto) (2293-8803) /uL [place] # (Auto) (0-900) /uL Eos # (Auto) (0-450) /uL Baso # (Auto) (0-100) /uL PT (10.1-12.7) SECONDS INR (0.9-1.3) APTT (26.4-36.2) SECONDS Sodium 136 L (137-145) mmol/L Potassium 3.8 (3.4-5.1) mmol/L Chloride 105 (98-107) mmol/L Carbon Dioxide 20 L (22-32) mmol/L BUN 29 H (9-20) mg/dL Creatinine 1.56 H (0.66-1.25) mg/dL Estimated GFR 51 L (>60) mL/min BUN/Creatinine Ratio 18.6 (6-22) Glucose 189 H (70-100) mg/dL Calcium 8.9 (8.4-10.2) mg/dL Total Bilirubin 0.6 (0.2-1.3) mg/dL AST 26 (17-59) IU/L ALT 27 (<50) IU/L Alkaline Phosphatase 85 (38-126) U/L Total Creatine Kinase 132 (55-170) U/L CK-MB (CK-2) 1.41 (<2.37) ng/mL CK-MB (CK-2) Rel Index 1.1 L (1.5-5.0) % Troponin I < 0.012 < 0.012 (0.01-0.034) ng/mL NT-Pro-B Natriuret Pep (<125) pg/mL Total Protein 7.5 (6.3-8.2) g/dL Albumin 4.3 (3.5-5.0) g/dL Globulin 3.2 (1.7-4.1) g/dL Albumin/Globulin Ratio 1.3 (1.0-2.8) Lipase 271 (23-300) U/L SARS-CoV-2 (PCR) Negative (Negative) ECG Data Interpretation: Sinus rhythm with premature atrial complex. Rate of 93 [place] 170 QRS of 104 and QTC of 479. Patient has prior from 03/26/2020 no acute changes appreciated. EKG 2. Sinus rhythm rate 80 p.r. interval 178 QRS [address] changes Q-waves noted in lead 3 and AVF since or to prior MDM Narrative Medical decision making narrative: This is a 56-year-old gentleman with risk factors who comes in with complaint of chest pain, shortness of breath, diaphoresis and concerning symptoms for cardiac cause. Initial EKG does not show acute changes. Initial troponin is negative, chest x-ray and labs do not show other cause. Patient had improvement with nitro but had severe headache given dose of morphine alternatively which also improved both but did not resolve. Patient received aspirin 324 mg. Patient signed out to Dr. Alves while awaiting 2nd troponin, EKG. Patient signed out to me by Dr. Hernandes. I seen evaluated patient myself. He he had quite epic headache after nitro has finally improved. He reports of chest heaviness and chest pain keeping him from sleeping last night. He has had episodes of diaphoresis and nausea, with history of hypertension. Certainly concerning for cardiac issue. Dr. Freeman accepts patient Discharge Plan Departure Patient Disposition: Admitted as Observation Clinical Impression: Chest pain Admit Date/Time: 03/20/22 09:36 Admit Provider: Gianluca Freeman
--- NOTE | 2022-03-20 06:11 | DI.RAD.S_ITS ---
PROCEDURE: XR CHEST 1V INDICATIONS: chest pain TECHNIQUE: One view of the chest was acquired. COMPARISON: [facility], CR, XR CHEST 2 VIEWS, 11/16/2018, 14:12. FINDINGS: Surgical changes and devices: None. Lungs and pleura: Lungs are clear. No pleural effusions or pneumothorax. Mediastinum: Mediastinal contours appear normal. Heart size is normal. Bones and chest wall: No suspicious bony lesions. Overlying soft tissues appear unremarkable. IMPRESSION: No acute cardiopulmonary disease process. Dictated by: Trisha Tee MD, PhD on 03/20/2022 at 8:46 Approved by: Trisha Tee MD, PhD on 03/20/2022 at 8:47
[2022-03-20] MEDS: ASPIRIN 81 MG CHEW TAB 324 MG PO (06:19)
[2022-03-20] MEDS: NITROGLYCERIN 0.4 MG SL TAB SL (06:25)
[2022-03-20 06:29] LABS: Add Manual Diff / Slide Review NO; Basophils Absolute Auto 0 /uL (0-100); Eosinophils Absolute Auto 100 /uL (0-450); Eosinophils Percent Auto 1.4 % (2-4); Hematocrit 44.6 % (41-53); Hemoglobin 15.4 g/dL (13.5-17.5); Lymphocytes Absolute Auto 1600 /uL (1100-4500); Lymphocytes Percent Auto 32.7 % (25-40); Mean Corpuscular HGB Conc 34.6 % (30-36); Mean Corpuscular Hemoglobin 31.3 PG (26-34); Mean Corpuscular Volume 90.3 fL (80-100); Monocytes Absolute Auto 400 /uL (0-900); Monocytes Percent Auto 7.6 % (3-14); Neutrophils Absolute Auto 2800 /uL (1500-7000); Neutrophils Percent Auto 57.3 % (50-75); Platelet Count 189 X10^3/uL (150-400); Prothrombin Time 11.4 SECONDS (10.1-12.7); Red Blood Cell Count 4.93 X10^6/uL (4.5-5.9); White Blood Cell Count 4.9 X10^3/uL (4.5-11.0)
[2022-03-20 06:31] LABS: PTT Partial Thromboplastin Tim 29 SECONDS (26.4-36.2)
[2022-03-20 06:40] LABS: Alanine Aminotransferase 27 IU/L (<50); Albumin 4.3 g/dL (3.5-5.0); Albumin Globulin Ratio 1.3 (1.0-2.8); Alkaline Phosphatase 85 U/L (38-126); Aspartate Aminotransferase 26 IU/L (17-59); BUN Creatinine Ratio 18.6 (6-22); Bilirubin Total 0.6 mg/dL (0.2-1.3); Blood Urea Nitrogen 29 mg/dL (9-20); Calcium 8.9 mg/dL (8.4-10.2); Carbon Dioxide 20 mmol/L (22-32); Chloride 105 mmol/L (98-107); Creatine Kinase 132 U/L (55-170); Estimated Glomerular Filt Rate 51 mL/min (>60); Globulin 3.2 g/dL (1.7-4.1); Glucose 189 mg/dL (70-100); HEMOLYSIS 22 (0-50); Lipase 271 U/L (23-300); Potassium 3.8 mmol/L (3.4-5.1); Sodium 136 mmol/L (137-145); Total Protein 7.5 g/dL (6.3-8.2)
[2022-03-20 06:50] LABS: Troponin I < 0.012 ng/mL (0.01-0.034)
[2022-03-20 06:51] LABS: NT-proBNP (BNP-Adult 18+) 26 pg/mL (<125)
[2022-03-20] MEDS: MORPHINE 4 MG/ML INJ IV ×2 (06:53→07:43)
[2022-03-20] MEDS: ONDANSETRON 4 MG/2 ML INJ IV (06:53)
[2022-03-20 06:54] LABS: CKMB % Relative Index 1.1 % (1.5-5.0); Creatine Kinase MB 1.41 ng/mL (<2.37)
--- NOTE | 2022-03-20 06:55 | PC.NURSE ---
Pt reported decrease in pain post-SL nitro, but reports insane headache. Morphine given per MAR order for this. Pt BP dropped from 160 systolic to 107 systolic with nitro. Pt continues to report a tightness in his chest.
[2022-03-20 07:37] LABS: COVID19 -Nasal RAPID Negative (Negative)
[2022-03-20 08:43] LABS: Troponin I < 0.012 ng/mL (0.01-0.034)
--- NOTE | 2022-03-20 08:54 | DI.NM.S_ITS ---
PROCEDURE: NM ALLEN PERF SPECT R&S PHARM Rest and pharmacological stress myocardial perfusion SPECT with gated imaging and ejection fraction RADIOPHARMACEUTICAL: 12 mCi Tc-99m tetrafosmin IV at rest and 25.9 mCi Tc-99m tetrafosmin IV at peak effect of pharmacological stress. [id number] was performed. INDICATIONS: chest pain TECHNIQUE: Radiopharmaceutical was injected at peak stress test, and also at rest. SPECT images were obtained. SPECT myocardial perfusion images were displayed in short axis, horizontal long axis, and vertical long axis views. Gated images were reviewed using [employer] software. COMPARISON: None. CARDIAC STRESS: A pharmacologic stress test was performed under the supervision of an attending staff, using an infusion of lexiscan 0.4mg IV X1. Hemodynamic data: There is normal blood pressure and heart rate response to pharmacologic stress. Symptoms: The patient denied anginal chest pain. Aminophylline: none EKG: No diagnostic changes of ischemia; occasional PACs and rare PVCs during the study. FINDINGS: Raw data: There is good myocardial uptake of radiotracer. No significant motion artifacts. Ldyp-sf-owuck ratio is 0.3 (normal is less than 0.38 for tetrafosmin tracer). Left ventricle function: Gated images demonstrate normal left ventricular wall thickening. No segmental wall motion abnormalities. No transient ischemic dilation; TID is 1.03 (normal less than 1.3). Left ventricle resting end diastolic volume is 102 mL. Left ventricle stress ejection fraction is 64%; normal range is above 45%. Myocardial perfusion: There is a fixed moderately intense inferior wall defect that could be from diaphragmatic attenuation artifact or prior non-transmural infarct. Prone images on prior nuc stress 03/02/2013 had significantly improved the similar defect on that study, making attenuation more likely. No prone images due to bad hip on the current study. No ischemia. IMPRESSION: Low risk, probably normal pharmaceutical nuclear stress test 1) There is a fixed moderately intense inferior wall defect that could be from diaphragmatic attenuation artifact or prior non-transmural infarct. Prone images on prior nuc stress 03/02/2013 had significantly improved the similar defect, making attenuation more likely. No prone images due to bad hip on the current study. No ischemia. 2) Normal left ventricular size, wall motion, and systolic function (EF post stress 64%). 3) No angina during the study. 4) No ST changes with lexiscan. 5) Compared to the nuc study done 03/02/2013, no significant change. Dictated by: Patricia Werner MD on 03/21/2022 at 16:27 Approved by: Patricia Werner MD on 03/21/2022 at 16:32
--- NOTE | 2022-03-20 11:56 | DI.ECHO.S_ITS ---
[facility] +---------+ : : [address] : : : : [id number] : : : : Phone: [phone]+ Echocardiogram Report + + :Name: YOLANDA SOTELO Study Date: 03/20/2022 Height: 73 in : :[facility] ReadingLocation: Weight: 260 lb : : Gender: Male BSA: 2.4 m2 : :: 1965 Age: 56 yrs BP: 113/70 mmHg: :Reason For Study: Chest pain : :Ordering Physician: CHASTITY, : :SWAPNA TAMEZ Performed By: Alireza Villafana : :Referring: SWAPNA HAYWOOD : + + Interpretation Summary The left ventricle is normal in size and wall thickness. Left ventricular systolic function is low normal. Left ventricular ejection fraction is estimated to be 50%. There are no focal wall motion abnormalities. Diastolic parameters suggest a relaxation abnormality of the left ventricle, consistent with probable normal filling pressures. The right ventricle is normal in size and function. The right ventricular systolic pressure is estimated to be at least 25 mmHg based on an estimated right atrial pressure of 3 mm Hg. Both atria are normal in size. There is no significant valvular heart disease. The aortic root is normal size. Procedure: A two-dimensional transthoracic echocardiogram with color flow and Doppler was performed. The study quality was technically adequate. There is no prior echocardiogram noted for this patient. Left Ventricle: The left ventricle is normal in size and wall thickness. Left ventricular systolic function is low normal. Left ventricular ejection fraction is estimated to be 50%. There are no focal wall motion abnormalities. Diastolic parameters suggest a relaxation abnormality of the left ventricle, consistent with probable normal filling pressures. Right Ventricle: The right ventricle is normal in size and function. Atria: Both atria are normal in size. The interatrial septum grossly appears intact with no obvious evidence for an atrial septal defect. Mitral Valve: The mitral valve is normal in structure and function. There is trace mitral regurgitation. Aortic Valve: The aortic valve is normal in structure and function. There is trace aortic regurgitation. Tricuspid Valve: The tricuspid valve is normal in structure and function. There is trace tricuspid regurgitation. The right ventricular systolic pressure is estimated to be at least 25 mmHg based on an estimated right atrial pressure of 3 mm Hg. Pulmonic Valve: The pulmonic valve is not well seen, but is grossly normal. There is no pulmonic valvular regurgitation. There is no significant valvular heart disease. Great Vessels: The aortic root is normal size. The dimensions of the ascending aorta are normal. The IVC is of normal diameter and collapses greater than 50% with a sniff. This suggests a low right atrial pressure of 3 mm Hg. Pericardium/ Pleura There is no pericardial effusion. There is no pleural effusion. MMode/2D Measurements & Calculations LVIDd: 5.3 cm LVOT diam: 2.2 cm LVIDs: 3.6 cm Ao root diam: 3.7 cm FS: 31.9 % asc Aorta Diam: 3.4 cm IVSd: 0.96 cm LVPWd: 0.80 cm LV hernandez. diameter/BSA (cm/m^2): 2.2 LV sys. diameter/BSA (cm/m^2): 1.5 LA A2 area: 21.4 cm2 RA long axis: 4.6 cm LA A4 area: 19.6 cm2 RA area: 12.8 cm2 LA length (vol): 6.2 cm RA vol: 29.9 ml LA vol: 57.2 ml RA : 12.4 ml/m2 LA vol index: 23.8 ml/m2 TAPSE: 1.7 cm Doppler Measurements & Calculations Ao V2 max: 122.5 cm/sec LVOT Max Hany: 94.4 cm/sec Ao V2 mean: 89.0 cm/sec LV V1 max P.6 mmHg Ao max P.0 mmHg LV V1 VTI: 15.8 cm Ao mean P.5 mmHg ALMA(I,D): 2.8 cm2 Ao V2 VTI: 20.8 cm ALMA(V,D): 2.8 cm2 sev ratio: 0.76 ALMA indexed to BSA (cm^2/m^2): 1.1 MV E max hany: 40.5 cm/sec TR max hany: 235.5 cm/sec MV A max hany: 57.6 cm/sec TR max P.2 mmHg MV E/A: 0.70 Med Peak E' Hany: 4.9 cm/sec E/E' med: 8.3 Lat Peak E' Hany: 7.3 cm/sec E/E' lat: 5.6 E/e' average: 7.0 MV dec time: 0.37 sec SV(LVOT): 57.6 ml Reading Physician:01:17 PM
--- NOTE | 2022-03-20 11:58 | P.HP_ITS ---
History of Present Illness History of Present Illness Date Patient Seen: 03/20/22 Time Patient Seen: 11:50 Chief complaint: chest pain Narrative: This is a 56-year-old male with a past medical history of hypertension who presented to the emergency room today with worsening chest pain. Patient states that starting yesterday he is had a persistent chest pressure on the left side of his chest. Initially there was no radiation. It did get worse with exertion, and improved with rest. It was also associated with diaphoresis, and nausea yesterday evening. It further got worse when he tried to go to work this morning and decided to come to the emergency room. Now the pain is slightly improved after medications, but he is dated at work there was some radiation into his left arm. He did not try anything at home to make it go away. Denies any headaches, dizziness, or vision changes. He denies any orthopnea, dyspnea on exertion prior to yesterday, or lower extremity edema. He Still has a mild pressure in his chest currently. He also complains of tongue swelling over the past couple of days, and does take lisinopril. In the emergency room, the patient's vital signs were unremarkable. Laboratory testing revealed an unremarkable CBC, though chemistries revealed a mild metabolic acidosis with a carbon dioxide of 20, creatinine was elevated at 1.56, and glucose was also elevated at 189. Initial troponin and a 2 hour troponin were both negative. ProBNP was unremarkable. COVID-19 testing was negative. Patient was admitted for further evaluation of chest pain, with plan for stress testing and further trending of his troponins given concerning history. Patient History Medical History Hyperlipidemia Hypertension Surgical History H/O shoulder surgery Family & Social History Family History (Updated 03/20/22 @ 12:00 by Gianluca Freeman DO) Mother No pertinent past medical history Father No pertinent past medical history Social History: household members children Safety & Behavioral: Feels Safe in Current Yes Environment Tobacco & Substance use: Smoking Status Never smoker alcohol intake frequency 0-2 drinks per day Substance Use Type does not use Meds Home Medications and Allergies Home Medications Medication Instructions Recorded Confirmed Type lisinopril 20 mg tablet 20 mg PO QDAY #0 02/09/17 03/20/22 History hydrochlorothiazide 12.5 mg tablet 12.5 mg PO BID 03/20/22 03/20/22 History Allergies Allergy/AdvReac Type Severity Reaction Status Date / Time meperidine [From DEMEROL] Allergy Unknown Verified 03/20/22 06:19 Review of Systems Review of Systems Narrative: All other systems reviewed with the patient and are negative unless otherwise stated. Exam Vital Signs (past 8 hours): - 03/20/22 06:00 03/20/22 06:33 03/20/22 07:16 Temperature 97.8 F Pulse Rate 92 H 97 H 97 H Respiratory Rate 20 21 21 Blood Pressure 161/90 H 107/76 124/79 Pulse Oximetry 98 94 95 03/20/22 10:29 Temperature Pulse Rate 74 Respiratory Rate 18 Blood Pressure 113/70 Pulse Oximetry 98 Oxygen Delivery Method Room Air Narrative Exam Narrative: General:? Patient is well developed and well nourished, in no distress at this time. HEENT:? Normocephalic, atraumatic, extraocular muscles intact, oral pharynx is clear and mucous membranes are moist. Neck: supple and symmetric, trachea is midline, no cervical adenopathy. Negative for JVD Chest:? Normal AP diameter and contour without kyphoscoliosis, no tachypnea, equal chest rise bilaterally. Lungs:? CTA b/l no wheezing rhonchi or rales. Cardio:?RRR no m/r/g. Abdomen: S NT ND. No CVA tenderness. Musculoskeletal:? Muscle strength and tone are equal within normal limits, no deformity. Extremities: No edema or joint effusions. No cyanosis or clubbing. Skin:? Pale,? Warm to touch,dry and intact without rashes, ulcerations or petechiae.? Neuro:? Alert and orientated x3,? sensation to touch intact in all extremities, no gross deficits noted of cranial nerves. Psych:? Patient has a well-kept appearance, appropriate affect, mental status attitude thought context and judgment are appropriate for age. Objective ECG Impression: Sinus rhythm with premature atrial complexes There are non-specific changes on repeat EKG, no evidence of acute ischemia but morphology appears slightly different as interpreted by me. Imaging Chest x-ray: My impression: Unremarkable chest x-ray Labs Result Diagrams: 03/20/22 06:10 03/20/22 06:10 Labs: Laboratory Results - last 24 hr 03/20/22 03/20/22 03/20/22 06:10 06:10 06:10 WBC 4.9 RBC 4.93 Hgb 15.4 Hct 44.6 MCV 90.3 MCH 31.3 MCHC 34.6 RDW 13.0 Plt Count 189 Neut % (Auto) 57.3 Lymph % (Auto) 32.7 [place] % (Auto) 7.6 Eos % (Auto) 1.4 L Baso % (Auto) 1.0 Neut # (Auto) 2800 Lymph # (Auto) 1600 [place] # (Auto) 400 Eos # (Auto) 100 Baso # (Auto) 0 PT 11.4 INR 1.0 APTT 29 Sodium Potassium Chloride Carbon Dioxide BUN Creatinine Estimated GFR BUN/Creatinine Ratio Glucose Calcium Total Bilirubin AST ALT Alkaline Phosphatase Total Creatine Kinase CK-MB (CK-2) CK-MB (CK-2) Rel Index Troponin I NT-Pro-B Natriuret Pep 26 Total Protein Albumin Globulin Albumin/Globulin Ratio Lipase SARS-CoV-2 (PCR) 03/20/22 03/20/22 03/20/22 06:10 07:22 08:09 WBC RBC Hgb Hct MCV MCH MCHC RDW Plt Count Neut % (Auto) Lymph % (Auto) [place] % (Auto) Eos % (Auto) Baso % (Auto) Neut # (Auto) Lymph # (Auto) [place] # (Auto) Eos # (Auto) Baso # (Auto) PT INR APTT Sodium 136 L Potassium 3.8 Chloride 105 Carbon Dioxide 20 L BUN 29 H Creatinine 1.56 H Estimated GFR 51 L BUN/Creatinine Ratio 18.6 Glucose 189 H Calcium 8.9 Total Bilirubin 0.6 AST 26 ALT 27 Alkaline Phosphatase 85 Total Creatine Kinase 132 CK-MB (CK-2) 1.41 CK-MB (CK-2) Rel Index 1.1 L Troponin I < 0.012 < 0.012 NT-Pro-B Natriuret Pep Total Protein 7.5 Albumin 4.3 Globulin 3.2 Albumin/Globulin Ratio 1.3 Lipase 271 SARS-CoV-2 (PCR) Negative Assessment & Plan Assessment & Plan narrative: 1. Chest pain - concerning for anginal symptoms, possibly unstable angina given persistence. - initial troponins negative, will continue to follow. - Echo and stress ordered for now, consult cardiology if troponins rise. - check A1c, lipids, and TSH - continue telemetry. 2. HTN - will hold home medications for now, given tongue swelling reported will hold off on any lisinopril or losartan. - hold diuretic in setting of vu - if hypertensive, will start metoprolol instead. 3. Tongue swelling - possible adverse reaction to lisinopril, will stop. Tongue does not appear overtly enlarged but patient certain it is bigger than usual. - continue to monitor, airway not threatened at this time. 4. VU - Creatinine 1.56 frm baseline of around 1.0-1.2. - mild metabolic acidosis - give IVF, check renal ultrasound and UA 5. Elevated glucose - will check an A1c. Code: Full, surrogate decision maker is son Dispo: Admit to observation, stress testing unable to be performed today, plan for tomorrow if troponin negative. DVT: Lovenox I have utilized all available immediate resources to obtain, update, or review the patient's current medications. COVID-19 COVID-19 status: Negative Time Spent With Patient Critical Care time: I spent a total of [] minutes of critical care time on this patient's care today; this time is exclusive of procedural time. Quality MIPS - Admit I confirm the patient?s Advance Care Plan is present, Code status is documented, Surrogate decision maker is in patient?s record [If Yes, STOP here]: Yes
--- NOTE | 2022-03-20 12:22 | DI.US.S_ITS ---
PROCEDURE: US RENAL COMPLETE INDICATIONS: VU TECHNIQUE: Real-time scanning was performed of the kidneys and bladder, with image documentation. COMPARISON: None. FINDINGS: Kidneys: Kidneys are normal in size. Right kidney measures 13.2 cm long; left kidney measures 12.4 cm long. Right renal cortical thickness is 2.3 cm; left renal cortical thickness is 1.7 cm. Renal cortical echotexture is normal. No hydronephrosis or nephrolithiasis. No suspicious solid mass lesions. Bladder: Pre-void bladder volume is 449 mL. Post-void residual is 0 mL. Pre-void images demonstrate no intraluminal masses or stones. On pre-void images, right ureteral jets are noted with color Doppler interrogation. (Of note, ureteral jets may not be detectable in up to 25% of cases due to insufficient differences in specific gravity between ureteral and bladder urine). Miscellaneous: No free pelvic fluid. IMPRESSION: No hydronephrosis or nephrolithiasis. No significant abnormality is seen sonographically. Dictated by: Rickie Jorge M.D. on 03/20/2022 at 13:27 Approved by: Rickie Jorge M.D. on 03/20/2022 at 13:37
--- NOTE | 2022-03-20 15:33 | PC.NURSE ---
Admit note: Patient admitted to room 219 from ED, ambulated independently from gurney to bed, steady gait. Tele placed on arrival. No c/o chest pain, SOB, dizziness. VSS and on RA, 96%. Echocardiogram at bedside shortly after arrival. Oriented to room, environment, and plan of care. Call light within reach.
[2022-03-20 17:40] LABS: Appearance Urine UA CLEAR; Bilirubin Urine UA NEGATIVE (NEGATIVE); Color Urine UA YELLOW; Glucose Urine UA NEGATIVE (Negative); Ketones Urine UA NEGATIVE (NEGATIVE); Leukocyte Esterase Urine UA NEGATIVE (NEGATIVE); Nitrite Urine UA NEGATIVE (Negative); Occult Blood Urine UA NEGATIVE (Negative); Protein Urine UA NEGATIVE (Negative); Urobilinogen Urine UA 0.2 E.U./dL (0.2)
[2022-03-20 17:50] LABS: Troponin I < 0.012 ng/mL (0.01-0.034)
[2022-03-20 17:54] LABS: Bacteria Urine None Seen; Culture Indicated Urine Cult Not Indicated; RBC Urine None Seen (0-5/HPF); Squamous Epithelial Cell Urine 0-1 /HPF (0-5/HPF); WBC Urine 0-1/HPF (0-5/HPF)
[2022-03-20] MEDS: ACETAMINOPHEN 325 MG TABLET 975 MG PO (19:20)
[2022-03-21] VITALS (9 sets, daily range): BP systolic 126–149; BP diastolic 74–93; PULSE 78–89; RESP 14–18; TEMP 36.4–37.1; O2SAT 92–99
[2022-03-21 05:41] LABS: Add Manual Diff / Slide Review NO; Basophils Absolute Auto 0 /uL (0-100); Basophils Percent Auto 0.9 % (0-2); Eosinophils Absolute Auto 100 /uL (0-450); Eosinophils Percent Auto 2.8 % (2-4); Hematocrit 43.1 % (41-53); Lymphocytes Absolute Auto 1400 /uL (1100-4500); Lymphocytes Percent Auto 35.8 % (25-40); Mean Corpuscular HGB Conc 34.8 % (30-36); Mean Corpuscular Hemoglobin 31.6 PG (26-34); Mean Corpuscular Volume 90.8 fL (80-100); Monocytes Absolute Auto 300 /uL (0-900); Monocytes Percent Auto 8.6 % (3-14); Neutrophils Absolute Auto 2100 /uL (1500-7000); Neutrophils Percent Auto 51.9 % (50-75); Platelet Count 174 X10^3/uL (150-400); Red Blood Cell Count 4.75 X10^6/uL (4.5-5.9); Red Cell Distribution Width 13.2 % (11.6-14.8)
[2022-03-21 05:54] LABS: BUN Creatinine Ratio 17.8 (6-22); Blood Urea Nitrogen 24 mg/dL (9-20); Calcium 8.9 mg/dL (8.4-10.2); Carbon Dioxide 26 mmol/L (22-32); Chloride 102 mmol/L (98-107); Cholesterol 276 mg/dL (140-199); Estimated Glomerular Filt Rate > 60 mL/min (>60); Glucose 127 mg/dL (70-100); HDL Cholesterol 42 mg/dL (40-60); HEMOLYSIS < 15 (0-50); LDL Cholesterol Calculated 199 mg/dL (<100); Magnesium 2.1 mg/dL (1.6-2.3); Potassium 3.9 mmol/L (3.4-5.1); Sodium 135 mmol/L (137-145); Triglycerides 176 mg/dL (35-150)
[2022-03-21 06:04] LABS: Hemoglobin A1C% w Est Avg Glu 6.2 % (4.0-6.0)
[2022-03-21 06:26] LABS: TSH w/ Reflex to FT4 1.67 uIU/mL (0.47-4.68)
[2022-03-21] MEDS: ASPIRIN EC 81 MG TABLET PO (08:16)
[2022-03-21] MEDS: ATORVASTATIN 20 MG TABLET 40 MG PO (08:16)
[2022-03-21] MEDS: ENOXAPARIN 40 MG/0.4 ML SYRINGE SUBCUT (08:16)
--- NOTE | 2022-03-21 08:53 | PC.NURSE ---
Day shift: Pt off unit for stress test (first part) at approx 0853.
--- NOTE | 2022-03-21 09:35 | PC.NURSE ---
Day shift: Pt back in room at approx 0930. PT can eat and drink until 1000 and then NPO. Pt agrees to this plan. He is eating breakfast now.
--- NOTE | 2022-03-21 12:45 | PC.NURSE ---
Day shift: Pt off unit for stress test (second part). Off tele.
[2022-03-21] MEDS: ACETAMINOPHEN 325 MG TABLET 975 MG PO (13:43)
--- NOTE | 2022-03-21 13:44 | PC.NURSE ---
Day shift: Back on tele and AC unit at approx 1330. Eating lunch. Complains of headache. Given Tylrnol per MAR for the LOVING pain. Call light in reach.
[2022-03-21] MEDS: IBUPROFEN 400 MG TABLET 800 MG PO (14:03)
--- NOTE | 2022-03-21 14:26 | DIET.PN1 ---
Dietary Progress Note Assessment: Pt screened for HgA1c. In rounds, RD/CDCES asked to complete PDM education. Recently hgA1c 6.2%, indicating prediabetes. Ht: 185.42 cm Wt: 117.934 kg BMI: 34.2 Last BM: 03/20/22 (03/20/22 12:22) MNA: Evan Score: 20 Diet: 03/20/22 Breakfast Heart Healthy Diet Diet Modifications: Sodium Level: 2 gm Sodium Nutrition Percent Meal Consumed 100% 03/20/22 17:49 Percent Meal Consumed 75% 03/20/22 13:30 Labs: RBC 4.75 X10^6/uL (4.5-5.9) 03/21/22 05:15 Hgb 15.0 g/dL (13.5-17.5) 03/21/22 05:15 Hct 43.1 % (41-53) 03/21/22 05:15 Creatinine 1.35 mg/dL (0.66-1.25) H 03/21/22 05:15 Hemoglobin A1c 6.2 % (4.0-6.0) H 03/21/22 05:15 NT-Pro-B Natriuret Pep 26 pg/mL (<125) 03/20/22 06:10 Nutrition Diagnosis: Altered nutrition related lab r/t new PDM dx and nutrition related knowledge deficit aeb HgA1c of 6.2% Interventions: MNT for prediabetes. Provided handouts regarding diagnosis, prevention DM, plate method, physical activity, discussed HgA1c results and ways to reduce. Enc pt to follow-up with PCP regarding DM risk. He was very receptive. Monitoring/Evaluations: consult prn Electronically Signed by: Neva Garcia 03/21/22 14:26 Clinical Dietitian [address] [id number]
--- NOTE | 2022-03-21 15:04 | CM.DANOTE ---
Patient is a 56 yo male who was admitted on 03/20/22 for Chest Pain. Pt has [employer] for insurance and his PCP is not listed. EMR was reviewed. Per MD pt admitted for Chest pain r/o and to have Echo and stress test. Pt has some high markers for possible heart cath pending results. Sampler Pickup met with pt regarding his pre-diabetes and provided education and information and pt seems receptive. Per RN, pt has been independent in the room and steady gait and was off the floor for stress test today and then returned. Pt has been able to eat in between being NPO for stress test. Pt lives in [place] and is active and independent at baseline, drives, and does not use DME and is employed. Plan: SW to follow for stress test results this afternoon towards determining if pt can d/c home with outpt f/u or if pt will need hospital transfer for heart cath or interventions at higher level of care. SANYA Oliver Discharge Planning/Care Management Advanced directive, confirm from FAMILY Start: 03/20/22 12:50 Freq: Q24H Status: Active Protocol: Document 03/20/22 12:50 EM (Rec: 03/20/22 12:51 EM [id number]) Advance Directive, confirm on record Time 12:51 Person contacted Son Copy received No Document 03/21/22 13:45 YAD (Rec: 03/21/22 13:45 YAD [id number]) Advance Directive, confirm on record Time 12:51 Person contacted Son Copy received No Time 13:45 Person contacted Pt Copy received No
--- NOTE | 2022-03-21 16:30 | P.DS_ITS ---
History of Present Illness History of Present Illness Date Patient Seen: 03/21/22 Time Patient Seen: 16:43 Chief complaint: chest pain Narrative: This is a 56-year-old male with a past medical history of hypertension who presented to the emergency room today with worsening chest pain. Patient states that starting yesterday he is had a persistent chest pressure on the left side of his chest. Initially there was no radiation. It did get worse with exertion, and improved with rest. It was also associated with diaphoresis, and nausea yesterday evening. It further got worse when he tried to go to work this morning and decided to come to the emergency room. Now the pain is slightly improved after medications, but he is dated at work there was some radiation into his left arm. He did not try anything at home to make it go away. Denies any headaches, dizziness, or vision changes. He denies any orthopnea, dyspnea on exertion prior to yesterday, or lower extremity edema. He Still has a mild pressure in his chest currently. He also complains of tongue swelling over the past couple of days, and does take lisinopril. In the emergency room, the patient's vital signs were unremarkable. Laboratory testing revealed an unremarkable CBC, though chemistries revealed a mild metabolic acidosis with a carbon dioxide of 20, creatinine was elevated at 1.56, and glucose was also elevated at 189. Initial troponin and a 2 hour troponin were both negative. ProBNP was unremarkable. COVID-19 testing was negative. Patient was admitted for further evaluation of chest pain, with plan for stress testing and further trending of his troponins given concerning history. Discharge Providers Provider Date of admission: 03/20/22 09:36 Discharge Date: 03/21/22 Discharge provider: Gianluca Freeman DO Summary Hospital Course Discharge Diagnosis: 1. Chest pain 2. HTN 3. Tongue swelling, possible angioedema 4. VU, improved 5. Prediabetes Hospital Course: This is a 56-year-old male with a past medical history of hypertension who presented to the emergency room with complaints of chest pain. His history was concerning for cardiac etiology, though he did report mild tongue swelling as well. His lisinopril he thinks had been recently increased a few weeks ago. Lisinopril was held over the course of his admission, and his blood pressure remained mildly elevated so he was switched to metoprolol the time of discharge. Echocardiogram was unremarkable and showed no focal wall motion abnormalities and a normal ejection fraction. He was also noted to have an VU with a creatinine of 1.5 which improved the following day without any obvious interventions. This may have been in the setting of possible angioedema, though it is not entirely clear at the moment. He symptomatically improved over the course of his stay. He underwent stress testing given his concerning history an elevated heart score, which was deemed a low risk study. He was also noted to have a very high LDL at 199, and was started on statin therapy for hype rlipidemia. His A1c was also noted to be 6.2% and he was seen by the dietitian, and recommended to continue lifestyle interventions. He scheduled a follow-up already with his primary care provider next week. He was advised to not be started on lisinopril or similar medications in the future given possible angioedema. Exam Vital Signs (past 8 hours): - 03/21/22 09:36 03/21/22 11:30 03/21/22 12:05 Temperature 97.6 F Pulse Rate 89 Respiratory Rate 16 Blood Pressure 126/74 Pulse Oximetry 97 97 92 03/21/22 13:45 03/21/22 16:00 Temperature 98.8 F Pulse Rate 82 Respiratory Rate 18 Blood Pressure 141/88 H Pulse Oximetry 97 95 Oxygen Delivery Method Room Air Oxygen Flow Rate 0 Narrative Exam Narrative: General:? Patient is well developed and well nourished, in no distress at this time. HEENT:? Normocephalic, atraumatic, extraocular muscles intact, oral pharynx is clear and mucous membranes are moist. Neck: supple and symmetric, trachea is midline, no cervical adenopathy. Negative for JVD Chest:? Normal AP diameter and contour without kyphoscoliosis, no tachypnea, equal chest rise bilaterally. Lungs:? CTA b/l no wheezing rhonchi or rales. Cardio:?RRR no m/r/g. Abdomen: S NT ND. No CVA tenderness. Musculoskeletal:? Muscle strength and tone are equal within normal limits, no deformity. Extremities: No edema or joint effusions. No cyanosis or clubbing. Skin:? Pale,? Warm to touch,dry and intact without rashes, ulcerations or petechiae.? Neuro:? Alert and orientated x3,? sensation to touch intact in all extremities, no gross deficits noted of cranial nerves. Psych:? Patient has a well-kept appearance, appropriate affect, mental status attitude thought context and judgment are appropriate for age. Objective Labs Result Diagrams: 03/21/22 05:15 03/21/22 05:15 Labs: Laboratory Results - last 24 hr 03/20/22 03/20/22 03/21/22 16:00 17:10 05:15 WBC 4.0 L RBC 4.75 Hgb 15.0 Hct 43.1 MCV 90.8 MCH 31.6 MCHC 34.8 RDW 13.2 Plt Count 174 Neut % (Auto) 51.9 Lymph % (Auto) 35.8 Greene % (Auto) 8.6 Eos % (Auto) 2.8 Baso % (Auto) 0.9 Neut # (Auto) 2100 Lymph # (Auto) 1400 Greene # (Auto) 300 Eos # (Auto) 100 Baso # (Auto) 0 Sodium Potassium Chloride Carbon Dioxide BUN Creatinine Estimated GFR BUN/Creatinine Ratio Glucose Hemoglobin A1c Calcium Magnesium Troponin I < 0.012 Triglycerides Cholesterol LDL Cholesterol, Calc HDL Cholesterol TSH Urine Color Yellow Urine Appearance Clear Urine pH 5.0 Ur Specific [place] 1.020 Urine Protein Negative Urine Glucose (UA) Negative Urine Ketones Negative Urine Occult Blood Negative Urine Nitrate Negative Urine Bilirubin Negative Urine Urobilinogen 0.2 Ur Leukocyte Esterase Negative Urine RBC None seen Urine WBC 0-1/hpf Ur Squamous Epith Cells 0-1 /hpf Urine Bacteria None seen Ur Culture Indicated? Cult not indicated 03/21/22 03/21/22 03/21/22 05:15 05:15 05:15 WBC RBC Hgb Hct MCV MCH MCHC RDW Plt Count Neut % (Auto) Lymph % (Auto) Greene % (Auto) Eos % (Auto) Baso % (Auto) Neut # (Auto) Lymph # (Auto) Greene # (Auto) Eos # (Auto) Baso # (Auto) Sodium 135 L Potassium 3.9 Chloride 102 Carbon Dioxide 26 BUN 24 H Creatinine 1.35 H Estimated GFR > 60 BUN/Creatinine Ratio 17.8 Glucose 127 H Hemoglobin A1c 6.2 H Calcium 8.9 Magnesium 2.1 Troponin I Triglycerides 176 H Cholesterol 276 H LDL Cholesterol, Calc 199 H HDL Cholesterol 42 TSH 1.67 Urine Color Urine Appearance Urine pH Ur Specific Huntington Urine Protein Urine Glucose (UA) Urine Ketones Urine Occult Blood Urine Nitrate Urine Bilirubin Urine Urobilinogen Ur Leukocyte Esterase Urine RBC Urine WBC Ur Squamous Epith Cells Urine Bacteria Ur Culture Indicated? PFSH Medical History Hyperlipidemia Hypertension Surgical History H/O shoulder surgery Family History (Updated 03/20/22 @ 12:00 by Gianluca Freeman DO) Mother No pertinent past medical history Father No pertinent past medical history Social History household members: children Smoking Status: Never smoker Discharge Plan Discharge Plan Patient Disposition: Home Provider Discharge Comment: You were admitted to the hospital with chest pain. You also reported some tongue swelling. Stress testing was unremarkable. It is possible this may be due to a reaction to lisinopril. This class of medications was stopped. will change to another medication called metoprolol instead. Your cholesterol is also high and I recommend a statin for prevention of cardiac disease. Discharge orders & Medications Prescriptions: New atorvastatin [Lipitor] 20 mg Tablet 40 mg PO DAILY 30 Days Qty: 30 0RF metoprolol tartrate 25 mg tablet 25 mg PO DAILY 30 Days Qty: 30 0RF Continued hydrochlorothiazide 12.5 mg tablet 12.5 mg PO BID 0RF Discontinued lisinopril 20 MG tablet 20 mg PO QDAY Qty: 0 0RF Diet/Activity/Treatments Diet: Diet as Tolerated Activity: As tolerated Discharge Data Attending Provider: Gianluca Freeman
--- NOTE | 2022-03-21 17:01 | PC.NURSE ---
Day shift: Pt left unit at approx 1700 via WC. Taken out to his car via WC. He is driving himself home. Paperwork is signed and all questions answered. He has all personal belongings. scripts sent electronic to his pharmacy. Pt stated I'm really glad to be going home today. Pt also encouraged to f/u with his PCP RENE.
== END 2022-03-21 17:03 | disposition home or self-care (01) ==
LOC: ED 08:26 → AC 09:36
PROVIDERS: Emergency Medicine; Admitting Provider Internal Medicine; Emergency Provider Emergency Medicine; Referring Provider Emergency Medicine; Visit Provider Internal Medicine
DX: R07.9 Chest pain, unspecified (principal); R06.02 Shortness of breath; I10 Essential (primary) hypertension; N17.9 Acute kidney failure, unspecified; E87.2 Acidosis; R73.02 Impaired glucose tolerance (oral); R73.03 Prediabetes; K14.8 Other diseases of tongue; Z20.822 Contact with and (suspected) exposure to COVID-19
CPT/HCPCS: 36415; 71045; 76770; 78452; 80048; 80053; 80061; 81001; 82550; 82553; 83036; 83690; 83735; 83880; 84443; 84484; 85025; 85610; 85730; 87635; 93005; 93017; 93306; 94760; 96372; 96374; 96375; 96376; 99284; C9803; G0378; A9502; J1650; J2270; J2405; J2785

== ENCOUNTER 2022-07-22 07:31 | Emergency (ER) | payer BC, SELFPAY ==
[2022-03-20 12:22] VITALS: BMI 34.2
[2022-07-22 07:35] VITALS: BP 141/82
[2022-07-22 07:36] VITALS: PULSE 98; O2SAT 94
[2022-07-22 07:44] VITALS: BP 141/82; PULSE 93; RESP 18; TEMP 36.3; O2SAT 98; BMI 34.2
--- NOTE | 2022-07-22 07:46 | ED_ITS ---
HPI - Abdominal Pain General Chief Complaint: Abdominal Pain Stated Complaint: Left side groin pain- hard to walk- 2 days Time Seen by Provider: 07/22/22 07:42 History of Present Illness HPI narrative: Patient is a 56-year-old male history of hypertension presenting with 2 days of left groin pain. He said he was crawling around his house cleaning. He does not remember any specific injury he certainly did not fall. He has no flank pain. His left groin hurts every time he moves or lifts his leg. His medial thigh hurts. He denies any testicular pain or swelling. He has previously had kidney stones to not feel like a kidney stone. He denies any nausea or vomiting. He has ongoing right hip pain and sciatic pain on the right side he says this is also not psychotic. He has been taking ibuprofen without much relief. He has been unable to sleep. Related Data Home Medications Medication Instructions Recorded Confirmed hydrochlorothiazide 12.5 mg tablet 12.5 mg PO BID 03/20/22 03/20/22 Previous Rx's Medication Instructions Recorded hydrocodone 5 mg-acetaminophen 325 1 tab PO Q6H PRN pain #10 tabs 07/22/22 mg tablet methocarbamol 750 mg tablet 1,500 mg PO Q12HR #20 tabs 07/22/22 Allergies Allergy/AdvReac Type Severity Reaction Status Date / Time meperidine [From DEMEROL] Allergy Unknown Verified 07/22/22 07:43 Review of Systems Review of Systems Narrative: GENERAL: Denies chills, fatigue, malaise, fever, sweats, travel HEENT: Denies sinus pain, ear pain, sore throat, difficulty swallowing, neck pain RESPIRATORY: Denies dyspnea, cough, wheezing, hemoptysis, sputum. CARDIOVASCULAR: Denies chest pain, palpitations, orthopnea, edema GASTROINTESTINAL: Denies nausea, vomiting, abdominal pain, diarrhea, constipation, melena. : Denies dysuria, frequency, incontinence, hematuria, urinary retention, flank pain. MUSCULOSKELETAL: See HPI SKIN: No rash, no erythema, no pruritus NEUROLOGIC: Denies weakness, dizziness, headache, numbness, change in speech, confusion PSYCHIATRIC: No concerning psychosocial issues. 12 point review of systems is negative except for those stated above and HPI Patient History Medical History Hyperlipidemia Hypertension Surgical History H/O shoulder surgery Family History Mother No pertinent past medical history Father No pertinent past medical history Social History household members: children Smoking Status: Never smoker Smoking Status: Never smoker alcohol intake frequency: 0-2 drinks per day Substance Use Type: does not use Exam Initial Vital Signs Initial Vital Signs: Vital Signs Blood Pressure 141/82 H 07/22/22 07:35 GENERAL alert 56-year-old male appears uncomfortable CARDIOVASCULAR: peripheral pulses in tact, cap refill <2 sec RESPIRATORY: No respiratory distress, speaks in full sentences without difficulty ABDOMEN: Soft, nontender, no guarding or rebound : No CVA tenderness, specifically not on the left EXTREMITIES: Normal range of motion, no clubbing or edema. Neurovascularly intact Left inguinal ligament tender to touch. No erythema or rash. Pain with left hip flexion. Thigh is tender to touch. Strong distal pedal pulse intact NEUROLOGICAL: Cranial nerves II through XII grossly intact. Normal gait and speech. SKIN: Warm, dry, no petechiae, no rashes or lesions. Course Orders Ordered: Discontinued Medications Ketorolac Tromethamine (Ketorolac 30 Mg/Ml Vial) 30 mg IM NOW ONE Stop: 07/22/22 08:07 Last Admin: 07/22/22 08:16 Dose: 30 mg Vital Signs Vital signs: Vital Signs - 8 hr 07/22/22 07:44 07/22/22 07:35 07/22/22 07:36 Temperature 97.4 F L Pulse Rate 93 H 98 H Respiratory Rate 18 Blood Pressure 141/82 H 141/82 H Pulse Oximetry 98 94 Oxygen Delivery Method Room Air MDM - Abdominal Pain MDM Narrative Medical decision making narrative: Patient is having inguinal ligament pain. It is definitely worse with movement. He has no testicular pain no flank pain. He denies any fall or injury. At this time I do not see any need for any imaging. Seems to be musculoskeletal in nature. He has an appointment with his PCP in 2 days. It also came on suddenly and has only been there for 2 days as well. At this time recommend rest ice pain control. If symptoms do not improve then do further workup Discharge Plan Departure Patient Disposition: Home Clinical Impression: Strain of left groin Instructions: DI for Groin Strain Activity Restrictions/Additional Instructions: *You have been diagnosed with Left groin strain *What to do: Light activity encouraged no strenuous activity no heavy lifting *Continue to take medications as directed-> SENT TO [facility] [place] Ibuprofen 600 mg every 6 hours ssbt-an-[id number] pain Mounds 1 tablet every 6 hours as needed for severe pain methocarbamol 1500 mg every 8 hours if needed for muscle spasm *Follow up with your primary care provider in 2-3 days or call [phone] *Return to ER if you should have increasing pain numbness tingling weakness, fever [or] any new, worsening or concerning symptoms CONTROLLED SUBSTANCE DISCHARGE (Narcotoic/benzodiazepine/Flexeril/Phenergan) 1. You have been prescribed narcotic medications, it does have acetaminophen/Tylenol/paracetamol in it, DO NOT TAKE MORE THAN 4,00mg in 24 hours of Tylenol. TRAMADOL DOES NOT CONTAIN TYLENOL 2. Please understand that we cannot provide further refills of narcotics, benzodiazepines or controlled substances through the ED and her pain management will need to be through your provider. 3. While on these medications you cannot drive or operate heavy machinery. 4. You cannot sign legal documents or perform any duties such as this. 5. As long as you're taking opiate pain medications he should also be taking a stool softener such as Colace, Dulcolax, MiraLAX or prune juice, to help avoid constipation. Prescriptions: New hydrocodone-acetaminophen 5-325 mg tablet 1 tab PO Q6H PRN (Reason: pain) Qty: 10 0RF methocarbamol 750 mg tablet 1,500 mg PO Q12HR Qty: 20 0RF No Action hydrochlorothiazide 12.5 mg tablet 12.5 mg PO BID Stand Alone Forms: Work Release Note Visit Report Forms: Patient Portal/API
[2022-07-22] MEDS: KETOROLAC 30 MG/ML VIAL IM (08:16)
== END 2022-07-22 08:40 | disposition home or self-care (01) ==
PROVIDERS: Emergency Provider Emergency Medicine
DX: S39.011A Strain of muscle, fascia and tendon of abdomen, initial encounter (principal)
CPT/HCPCS: 96372; 99283; J1885

== ENCOUNTER 2022-08-25 20:16 | Emergency (ER) | payer BC, SELFPAY ==
[2022-03-20 12:22] VITALS: BMI 34.2
[2022-08-25 20:19] VITALS: BP 168/85; PULSE 99; RESP 18; TEMP 36.7; O2SAT 96; BMI 32.8
--- NOTE | 2022-08-25 20:23 | DI.RAD.S_ITS ---
PROCEDURE: XR CHEST 1V INDICATIONS: chest pain TECHNIQUE: One view of the chest was acquired. COMPARISON: [facility], CR, XR CHEST 1V, 03/20/2022, 6:20. FINDINGS: Surgical changes and devices: None. Lungs and pleura: Lungs are clear. No pleural effusions or pneumothorax. Mediastinum: Mediastinal contours appear normal. Heart size is normal. Bones and chest wall: No suspicious bony lesions. Overlying soft tissues appear unremarkable. IMPRESSION: No acute cardiopulmonary pathology. Dictated by: Lexa Weaver M.D. on 08/25/2022 at 21:51 Approved by: Lexa Weaver M.D. on 08/25/2022 at 21:52
[2022-08-25 20:56] LABS: Add Manual Diff / Slide Review NO; Basophils Absolute Auto 0 /uL (0-100); Eosinophils Absolute Auto 200 /uL (0-450); Eosinophils Percent Auto 4.3 % (2-4); Hematocrit 38.8 % (41-53); Hemoglobin 13.4 g/dL (13.5-17.5); Lymphocytes Absolute Auto 1300 /uL (1100-4500); Lymphocytes Percent Auto 36.8 % (25-40); Mean Corpuscular HGB Conc 34.6 % (30-36); Mean Corpuscular Hemoglobin 31.8 PG (26-34); Monocytes Absolute Auto 400 /uL (0-900); Monocytes Percent Auto 9.8 % (3-14); Neutrophils Absolute Auto 1700 /uL (1500-7000); Neutrophils Percent Auto 48.1 % (50-75); Platelet Count 194 X10^3/uL (150-400); Red Blood Cell Count 4.22 X10^6/uL (4.5-5.9); Red Cell Distribution Width 12.8 % (11.6-14.8); White Blood Cell Count 3.6 X10^3/uL (4.5-11.0)
[2022-08-25 21:16] LABS: Alanine Aminotransferase 25 IU/L (<50); Albumin 4.2 g/dL (3.5-5.0); Albumin Globulin Ratio 1.3 (1.0-2.8); Alkaline Phosphatase 82 U/L (38-126); Aspartate Aminotransferase 26 IU/L (17-59); BUN Creatinine Ratio 13.6 (6-22); Bilirubin Total 0.5 mg/dL (0.2-1.3); Blood Urea Nitrogen 19 mg/dL (9-20); Carbon Dioxide 27 mmol/L (22-32); Chloride 105 mmol/L (98-107); Creatine Kinase 285 U/L (55-170); Estimated Glomerular Filt Rate 58 mL/min (>60); Globulin 3.3 g/dL (1.7-4.1); Glucose 130 mg/dL (70-100); HEMOLYSIS < 15 (0-50); Lipase 219 U/L (23-300); Magnesium 1.8 mg/dL (1.6-2.3); Potassium 3.4 mmol/L (3.4-5.1); Sodium 141 mmol/L (137-145); Total Protein 7.5 g/dL (6.3-8.2)
[2022-08-25 21:27] LABS: Troponin I < 0.012 ng/mL (0.01-0.034)
[2022-08-25 21:30] LABS: CKMB % Relative Index 0.9 % (1.5-5.0); Creatine Kinase MB 2.69 ng/mL (<2.37)
[2022-08-25 22:07] VITALS: BP 139/90; PULSE 85; RESP 16; O2SAT 97
--- NOTE | 2022-08-25 22:32 | ED.CHESTPAIN ---
HPI - Chest Pain General Chief Complaint: Chest Pain Stated Complaint: Tachycardia Time Seen by Provider: 08/25/22 20:48 Source: patient Mode of arrival: Ambulatory History of Present Illness HPI narrative: 56-year-old male nonsmoker with history of hypertension presents at the request of his PA for evaluation of high blood pressure, skipped beats, racing heart and chest pressure earlier today. He has been working overnight babysitter and states that when he woke up today at about 4:00 p.m. he felt a racing heart rate, skipping beats, a whooshing in his ears and he went to work and symptoms persisted. He checked in with the physician's speech language pathologist assistant and was found to have a blood pressure as high as the 190s and was feeling anterior chest pressure at which point he was sent to the emergency department. He denies any dizziness, weakness or lightheadedness. He is had no shortness of breath or vomiting. He denies any exercise intolerance. He is had no recent travel, injury, hospitalizations, known cancer or history of clot. He denies change in medications or diet Related Data Home Medications Medication Instructions Recorded Confirmed hydrochlorothiazide 12.5 mg tablet 12.5 mg PO BID 03/20/22 03/20/22 Previous Rx's Medication Instructions Recorded hydrocodone 5 mg-acetaminophen 325 1 tab PO Q6H PRN pain #10 tabs 07/22/22 mg tablet methocarbamol 750 mg tablet 1,500 mg PO Q12HR #20 tabs 07/22/22 Allergies Allergy/AdvReac Type Severity Reaction Status Date / Time meperidine [From DEMEROL] Allergy Unknown Verified 07/22/22 07:43 Review of Systems Review of Systems Narrative: GENERAL: Denies chills, fatigue, malaise, fever, sweats. HEENT: Denies sinus pain, ear pain, sore throat, difficulty swallowing, dizziness. RESPIRATORY: Denies dyspnea, cough, wheezing, hemoptysis, sputum. CARDIOVASCULAR: See HPI GASTROINTESTINAL: Denies nausea, vomiting, abdominal pain, diarrhea, constipation, melena. : Denies dysuria, frequency, incontinence, hematuria, urinary retention. MUSCULOSKELETAL: denies weakness, joint pain, or bony pain SKIN: Denies rash, skin lesions, or other NEUROLOGIC: Denies weakness, headache, numbness, change in speech, confusion, seizures, incoordination. PSYCHIATRIC: No concerning psychosocial issues. 12 point review of systems is negative except for those stated above Patient History Medical History Hyperlipidemia Hypertension Surgical History H/O shoulder surgery Family History Mother No pertinent past medical history Father No pertinent past medical history Social History household members: children Smoking Status: Never smoker Smoking Status: Never smoker alcohol intake frequency: 0-2 drinks per day Substance Use Type: does not use Exam Narrative Exam Narrative: GENERAL: [56] year old patient appears stated age. Well-developed patient, in mild distress. HEAD: Atraumatic. Normocephalic. EYES: Pupils equal round and reactive. Extraocular motions intact. No scleral icterus. No injection or drainage. ENT: Nose without bleeding, purulent drainage. Throat without erythema, tonsillar hypertrophy or exudate. Airway patent. NECK: Trachea midline. Non tender CARDIOVASCULAR: Regular rate and rhythm without murmurs, gallops, or rubs. RESPIRATORY: Clear to auscultation. Breath sounds equal bilaterally. No wheezes, rales, or rhonchi. GASTROINTESTINAL: Abdomen soft, non-tender, nondistended. EXTREMITIES: No edema or joint tenderness. BACK: Nontender without deformity or crepitance. No flank tenderness. NEURO: AOx3. SKIN: No rash or erythema of visible areas Initial Vital Signs Initial Vital Signs: Vital Signs Temperature 98.1 F 08/25/22 20:19 Pulse Rate 99 H 08/25/22 20:19 Respiratory Rate 18 08/25/22 20:19 Blood Pressure 168/85 H 08/25/22 20:19 Pulse Oximetry 96 08/25/22 20:19 Oxygen Delivery Method 08/25/22 20:19 Scores HEART Score Heart Score history: Slightly Suspicious Heart Score EKG: Normal Heart Score Age: 45-64 years old Heart Score risk factors: 1-2 risk factors Heart Score troponin: < or = to normal limit Heart Score Total: 2 Course Orders Ordered: ED Orders 08/25/22 22:48 D Dimer Stat Troponin & CK Cardiac Panel Stat 10/17/22 23:24 CT angio chest PE protocol Stat Vital Signs Vital signs: Vital Signs - 8 hr 08/25/22 22:07 08/26/22 00:32 Pulse Rate 85 75 Respiratory Rate 16 16 Blood Pressure 139/90 132/80 Pulse Oximetry 97 99 Oxygen Delivery Method Room Air Room Air MDM - Chest Pain Lab Data Result diagrams: 08/25/22 20:28 08/25/22 20:28 Labs: Lab Results 08/25/22 08/25/22 08/25/22 Range/Units 20:28 20:28 22:48 WBC 3.6 L (4.5-11.0) X10^3/uL RBC 4.22 L (4.5-5.9) X10^6/uL Hgb 13.4 L (13.5-17.5) g/dL Hct 38.8 L (41-53) % MCV 92.0 (80-100) fL MCH 31.8 (26-34) PG MCHC 34.6 (30-36) % RDW 12.8 (11.6-14.8) % Plt Count 194 (150-400) X10^3/uL Neut % (Auto) 48.1 L (50-75) % Lymph % (Auto) 36.8 (25-40) % [place] % (Auto) 9.8 (3-14) % Eos % (Auto) 4.3 H (2-4) % Baso % (Auto) 1.0 (0-2) % Neut # (Auto) 1700 (0350-3262) /uL Lymph # (Auto) 1300 (2359-9617) /uL [place] # (Auto) 400 (0-900) /uL Eos # (Auto) 200 (0-450) /uL Baso # (Auto) 0 (0-100) /uL D-Dimer 1301 H (<500) ng/ml Sodium 141 (137-145) mmol/L Potassium 3.4 (3.4-5.1) mmol/L Chloride 105 (98-107) mmol/L Carbon Dioxide 27 (22-32) mmol/L BUN 19 (9-20) mg/dL Creatinine 1.40 H (0.66-1.25) mg/dL Estimated GFR 58 L (>60) mL/min BUN/Creatinine Ratio 13.6 (6-22) Glucose 130 H (70-100) mg/dL Calcium 9.0 (8.4-10.2) mg/dL Magnesium 1.8 (1.6-2.3) mg/dL Total Bilirubin 0.5 (0.2-1.3) mg/dL AST 26 (17-59) IU/L ALT 25 (<50) IU/L Alkaline Phosphatase 82 (38-126) U/L Total Creatine Kinase 285 H (55-170) U/L CK-MB (CK-2) 2.69 H (<2.37) ng/mL CK-MB (CK-2) Rel Index 0.9 L (1.5-5.0) % Troponin I < 0.012 (0.01-0.034) ng/mL Total Protein 7.5 (6.3-8.2) g/dL Albumin 4.2 (3.5-5.0) g/dL Globulin 3.3 (1.7-4.1) g/dL Albumin/Globulin Ratio 1.3 (1.0-2.8) Lipase 219 (23-300) U/L 08/25/22 Range/Units 22:48 WBC (4.5-11.0) X10^3/uL RBC (4.5-5.9) X10^6/uL Hgb (13.5-17.5) g/dL Hct (41-53) % MCV (80-100) fL MCH (26-34) PG MCHC (30-36) % RDW (11.6-14.8) % Plt Count (150-400) X10^3/uL Neut % (Auto) (50-75) % Lymph % (Auto) (25-40) % [place] % (Auto) (3-14) % Eos % (Auto) (2-4) % Baso % (Auto) (0-2) % Neut # (Auto) (3669-4931) /uL Lymph # (Auto) (6663-1144) /uL [place] # (Auto) (0-900) /uL Eos # (Auto) (0-450) /uL Baso # (Auto) (0-100) /uL D-Dimer (<500) ng/ml Sodium (137-145) mmol/L Potassium (3.4-5.1) mmol/L Chloride (98-107) mmol/L Carbon Dioxide (22-32) mmol/L BUN (9-20) mg/dL Creatinine (0.66-1.25) mg/dL Estimated GFR (>60) mL/min BUN/Creatinine Ratio (6-22) Glucose (70-100) mg/dL Calcium (8.4-10.2) mg/dL Magnesium (1.6-2.3) mg/dL Total Bilirubin (0.2-1.3) mg/dL AST (17-59) IU/L ALT (<50) IU/L Alkaline Phosphatase (38-126) U/L Total Creatine Kinase 250 H (55-170) U/L CK-MB (CK-2) 2.36 (<2.37) ng/mL CK-MB (CK-2) Rel Index 0.9 L (1.5-5.0) % Troponin I < 0.012 (0.01-0.034) ng/mL Total Protein (6.3-8.2) g/dL Albumin (3.5-5.0) g/dL Globulin (1.7-4.1) g/dL Albumin/Globulin Ratio (1.0-2.8) Lipase (23-300) U/L Imaging Data CT scan - chest: Radiologist's Impression: Close Chest CTA (Signed) Lexa Weaver - 08/25/22 Chest X-Ray (Signed) Lexa Weaver - 08/25/22 Renal Ultrasound (Signed) Rickie Jorge - 03/20/22 Echocardiogram Ultrasound (Signed) Zachary Martínez - 03/20/22 Telemetry Strips 03/20/22 Myocardial Perfusion Scan Nuc Med (Signed) Patricia Werner - 03/20/22 Chest X-Ray (Signed) Trisha Tee - 03/20/22 Telemetry Strips 03/26/[address] (Signed) Gordon Crews - 03/26/[address] [address] [address] Scan Report Signed Patient: Logan Springer MR#: [id number] : 1965 Acct:[id number] Age/Sex: 56 / M Date of Service: 08/25/22 Loc: ED Accession Number: [id number] ?? Procedure: CT angio chest PE protocol Ordering Provider: Jagdish Orellana D.O. PROCEDURE:? CT ANGIO CHEST PE PROTOCOL ? INDICATIONS:? chest pain, palpitations, shortness of breath, critical Dime ? TECHNIQUE:? After the administration of intravenous contrast, 2 mm thick sections acquired from the pulmonary apices to the posterior costophrenic angles.? 3-dimensional maximum intensity projection (MIP) coronal and sagittal reformats were then acquired through the thorax.? For radiation dose reduction, the following was used:? automated exposure control, adjustment of mA and/or kV according to patient size.? ? COMPARISON:? None. ? FINDINGS:? Image quality:? Excellent.? ? Pulmonary arteries:? Pulmonary arteries are normal in size, and demonstrate no intraluminal filling defects to suggest central pulmonary embolism.? ? Lungs and pleura:? Mild dependent atelectasis in posterior aspect bilateral lung castillo are seen.? A calcified granuloma is noted at posterior aspect left lung base measures 7 mm in size series 5, image 230.? No acute airspace opacities.? No pleural effusions or pneumothorax.? Central and peripheral airways are patent.? ? Mediastinum:? Heart size is mildly enlarged, without pericardial effusion.? No mediastinal or hilar adenopathy.? Thoracic aorta is normal in caliber and enhancement.? Esophagus is normal in caliber, without hiatal hernia.? ? Bones and chest wall:? No suspicious bony lesions.? Ribs and thoracic spine appear intact throughout.? Thyroid gland is within normal limits.? No axillary or supraclavicular adenopathy.? ? Abdomen:? Visualized upper abdominal solid organs appear normal in the early arterial phase of enhancement.? ? IMPRESSION:? 1. No evidence of pulmonary emboli.? No thoracic aortic aneurysm.? 2. Mild cardiomegaly, no pericardial effusion.? No mediastinal or hilar lymphadenopathy. 3.? Dependent atelectasis in posterior aspect of bilateral lung castillo.? No focal infiltrate, pleural effusion or pneumothorax.? ? ? Dictated by: Lexa Weaver M.D. on 08/25/2022 at 23:54 ? ? Approved by: Lexa Weaver M.D. on 08/25/2022 at 23:56 ? MDM Narrative Medical decision making narrative: Multiple causes of chest pain considered including OK, PE, pneumothorax, pneumonia, aortic dissection, and pleurisy. Patient reports no radiation, no diaphoresis, no provocation with exertion, and no vomiting. Heart score is 2, repeat troponin also unremarkable. Symptoms most consistent with hypertensive episode that resolved prior to any intervention. Pulmonary embolism considered given elevated D-dimer, however CT angiogram demonstrates no significant findings. No evidence of pneumonia, pneumothorax, pancreatitis or other. Return precautions given and questions answered to his apparent satisfaction Discharge Plan Departure Patient Disposition: Home Clinical Impression: Atypical chest pain, Hypertension Instructions: DI for Atypical Chest Pain Activity Restrictions/Additional Instructions: *You have been diagnosed with [atypical chest pain, as we discussed your history and physical exam as well as lab work, EKGs and CT scan are unremarkable and show no sign of heart attack, blood clot or other specific diagnosis that requires immediate intervention. Your story is highly suggestive of the possibility of elevated blood pressure causing your symptoms earlier] *What to do: *Please continue to take your regular medications as directed. [ ] New medication prescriptions sent to your pharmacy: [ ] [ ] New medication written as a paper prescription [ x] No new medications given *Please follow up with your primary care provider in 2-3 days, call for an appointment. Let them know you were seen in the Emergency Department and that we ask that you be seen in follow up. We will electronically transmit a record of today's note if your PCP is in our system *If you do not have a primary care provider please contact the [facility] line at [phone]. They will ask some questions about your medical history and help get you set up with a doctor in the community. *Return to Emergency Department if you should have any new, worsening or concerning symptoms, such as [fever greater than 101 F, shaking chills, worsening pain, persistent vomiting or other bothersome symptoms] Prescriptions: No Action hydrocodone-acetaminophen 5-325 mg tablet 1 tab PO Q6H PRN (Reason: pain) Qty: 10 0RF methocarbamol 750 mg tablet 1,500 mg PO Q12HR Qty: 20 0RF hydrochlorothiazide 12.5 mg tablet 12.5 mg PO BID Visit Report Forms: Patient Portal/API
[2022-08-25 23:06] LABS: D Dimer 1301 ng/ml (<500)
[2022-08-25 23:07] LABS: Creatine Kinase 250 U/L (55-170)
[2022-08-25 23:20] LABS: Troponin I < 0.012 ng/mL (0.01-0.034)
[2022-08-25 23:22] LABS: CKMB % Relative Index 0.9 % (1.5-5.0); Creatine Kinase MB 2.36 ng/mL (<2.37)
--- NOTE | 2022-08-25 23:24 | DI.CT.S_ITS ---
PROCEDURE: CT ANGIO CHEST PE PROTOCOL INDICATIONS: chest pain, palpitations, shortness of breath, critical Dime TECHNIQUE: After the administration of intravenous contrast, 2 mm thick sections acquired from the pulmonary apices to the posterior costophrenic angles. 3-dimensional maximum intensity projection (MIP) coronal and sagittal reformats were then acquired through the thorax. For radiation dose reduction, the following was used: automated exposure control, adjustment of mA and/or kV according to patient size. COMPARISON: None. FINDINGS: Image quality: Excellent. Pulmonary arteries: Pulmonary arteries are normal in size, and demonstrate no intraluminal filling defects to suggest central pulmonary embolism. Lungs and pleura: Mild dependent atelectasis in posterior aspect bilateral lung castillo are seen. A calcified granuloma is noted at posterior aspect left lung base measures 7 mm in size series 5, image 230. No acute airspace opacities. No pleural effusions or pneumothorax. Central and peripheral airways are patent. Mediastinum: Heart size is mildly enlarged, without pericardial effusion. No mediastinal or hilar adenopathy. Thoracic aorta is normal in caliber and enhancement. Esophagus is normal in caliber, without hiatal hernia. Bones and chest wall: No suspicious bony lesions. Ribs and thoracic spine appear intact throughout. Thyroid gland is within normal limits. No axillary or supraclavicular adenopathy. Abdomen: Visualized upper abdominal solid organs appear normal in the early arterial phase of enhancement. IMPRESSION: 1. No evidence of pulmonary emboli. No thoracic aortic aneurysm. 2. Mild cardiomegaly, no pericardial effusion. No mediastinal or hilar lymphadenopathy. 3. Dependent atelectasis in posterior aspect of bilateral lung castillo. No focal infiltrate, pleural effusion or pneumothorax. Dictated by: Lexa Weaver M.D. on 08/25/2022 at 23:54 Approved by: Lexa Weaver M.D. on 08/25/2022 at 23:56
[2022-08-26 00:32] VITALS: BP 132/80; PULSE 75; RESP 16; O2SAT 99
== END 2022-08-26 00:33 | disposition home or self-care (01) ==
PROVIDERS: Emergency Provider Emergency Medicine
DX: R07.89 Other chest pain (principal); I10 Essential (primary) hypertension
CPT/HCPCS: 36415; 71045; 71275; 80053; 82550; 82553; 83690; 83735; 84484; 85025; 85379; 93005; 93010; 99284

== ENCOUNTER → 2022-12-16 10:56 | Outpatient (CLI) | payer BC, SELFPAY ==
[2022-03-20 12:22] VITALS: BMI 34.2
[2022-12-16 11:56] LABS: Hemoglobin A1C% w Est Avg Glu 6.2 % (4.0-6.0)
[2022-12-16 11:59] LABS: Add Manual Diff / Slide Review NO; Basophils Absolute Auto 0 /uL (0-100); Basophils Percent Auto 0.6 % (0-2); Eosinophils Absolute Auto 100 /uL (0-450); Eosinophils Percent Auto 1.7 % (2-4); Hematocrit 41.5 % (41-53); Hemoglobin 14.2 g/dL (13.5-17.5); Lymphocytes Absolute Auto 1700 /uL (1100-4500); Lymphocytes Percent Auto 33.6 % (25-40); Mean Corpuscular HGB Conc 34.2 % (30-36); Mean Corpuscular Hemoglobin 31.7 PG (26-34); Mean Corpuscular Volume 92.7 fL (80-100); Monocytes Absolute Auto 400 /uL (0-900); Neutrophils Absolute Auto 3000 /uL (1500-7000); Neutrophils Percent Auto 57.1 % (50-75); Platelet Count 203 X10^3/uL (150-400); Red Blood Cell Count 4.48 X10^6/uL (4.5-5.9); Red Cell Distribution Width 13.7 % (11.6-14.8); White Blood Cell Count 5.2 X10^3/uL (4.5-11.0)
[2022-12-16 12:09] LABS: Appearance Urine UA CLEAR; Bilirubin Urine UA NEGATIVE (NEGATIVE); Color Urine UA YELLOW; Glucose Urine UA NEGATIVE (Negative); Ketones Urine UA NEGATIVE (NEGATIVE); Leukocyte Esterase Urine UA NEGATIVE (NEGATIVE); Nitrite Urine UA NEGATIVE (Negative); Occult Blood Urine UA NEGATIVE (Negative); Protein Urine UA NEGATIVE (Negative); Specific Gravity Urine UA >=1.030 (1.000-1.035); Urobilinogen Urine UA 0.2 E.U./dL (0.2); pH Urine UA 5.5 (4.5-8.0)
[2022-12-16 12:23] LABS: Bacteria Urine Occasional (0-1); Culture Indicated Urine Cult Not Indicated; RBC Urine None Seen (0-5/HPF); Squamous Epithelial Cell Urine None Seen (0-5/HPF); WBC Urine 0-1/HPF (0-5/HPF)
[2022-12-16 12:24] LABS: BUN Creatinine Ratio 15.3 (6-22); Blood Urea Nitrogen 17 mg/dL (9-20); Calcium 9.3 mg/dL (8.4-10.2); Carbon Dioxide 23 mmol/L (22-32); Chloride 102 mmol/L (98-107); Estimated Glomerular Filt Rate > 60 mL/min (>60); Glucose 108 mg/dL (70-100); HEMOLYSIS < 15 (0-50); Potassium 3.7 mmol/L (3.4-5.1); Sodium 138 mmol/L (137-145)
== END ==
PROVIDERS: PCP Family Medicine; Referring Provider Orthopaedic Surgery; Visit Provider Orthopaedic Surgery
DX: Z01.818 Encounter for other preprocedural examination (principal); Z01.812 Encounter for preprocedural laboratory examination; R73.9 Hyperglycemia, unspecified; N39.0 Urinary tract infection, site not specified
CPT/HCPCS: 36415; 80048; 81001; 83036; 85025; 93005

== ENCOUNTER 2022-12-30 05:56 | Day surgery (SDC) | payer BC, SELFPAY ==
[2022-03-20 12:22] VITALS: BMI 34.2
[2022-12-24 13:54] VITALS: BMI 33.0
[2022-12-30] VITALS (14 sets, daily range): BP systolic 86–164; BP diastolic 58–95; PULSE 57–91; RESP 12–51; TEMP 35.6–36.8; O2SAT 94–99; BMI 33.2
[2022-12-30 06:50] LABS: COVID19 -Nasal RAPID Negative (Negative)
[2022-12-30] MEDS: ACETAMINOPHEN 325 MG TABLET 975 MG PO (06:59)
[2022-12-30] MEDS: LACTATED RINGERS 1,000 ML 42 ML IV ×2 (06:59→09:01)
[2022-12-30] MEDS: CELECOXIB 200 MG CAPSULE PO (07:00)
[2022-12-30] MEDS: PREGABALIN 75 MG CAPSULE PO (07:00)
[2022-12-30] MEDS: VANCOMYCIN 1,000 MG/200 ML PIGGYBACK 200 MG IV (07:05)
--- NOTE | 2022-12-30 07:39 | PM.PREOP ---
Pre-operative Note Interval Note History & Physical reviewed/Exam performed by Physician: Yes Changes to H&P: No
--- NOTE | 2022-12-30 07:39 | PM.OP.1 ---
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 Non-operative management has failed and the patient has requested total hip replacement. The risks, benefits and alternatives to surgery were discussed with the patient prior to proceeding. Risks discussed included, but were not limited to, failure to relieve pain, leg length discrepancy, dislocation, stiffness, infection, nerve damage, deep venous thrombosis, pulmonary embolism, stroke, coma, heart attack, permanent paralysis and , as well as the potential need for eventual revision of the prosthetic. Surgeon: Leeann Cruz Lining Presser: Jarad Hillman Anesthesia Type: Spinal and Sedation Operative Notes Findings: Severe right hip osteoarthritis, good stability of the broach in the femur, good overall joint stability Closure Type: primary Specimen(s): none sent Prosthetic devices, grafts, tissues, transplants, or devices: Cruz and nephew size 60 R3 cup, neutral poly liner, 36+ 0 Oxinium head, size 10 standard offset anthology,one 6.5 mm screw Estimated Blood Loss (mL): 250 Procedure in detail: The patient was seen in the pre-operative area, where the patient identified the right hip as the operative site and this was marked with my initials. The patient received pre-operative antibiotics and was taken to the operating room and placed on the operative table in the left lateral decubitus position after satisfactory anesthesia. A vice president of product marketing out was performed. The right leg was prepared from the ankle to the iliac crest with ChloroPrep in the usual fashion and draped through sterile drapes. The hip was approached through an approximately 20 cm incision centered over the greater trochanter and curving gently posteriorly as it went proximally. This was carried sharply to the fascia christofer, which was divided and retracted with a self retaining retractor. The trochanteric bursa was excised with care being taken to avoid the sciatic nerve, which was identified and protected throughout the case. The short external rotators were incised and the capsulomuscular flap was raised and tagged for later repair. The hip was dislocated, and a femoral neck osteotomy performed approximately 15 mm above the lesser trochanter. Retractors were placed around the femur. The canal was opened with a box cutting osteotome, followed by a T handled reamer and a lateralizing reamer. The chili pepper broach was then used, followed by sequential broaching until there was good stability of the broach in the femur. I meticulously worked on the proximal femur and checking the stability of the broaches the patient had a prior femur fracture. The broaches advanced without difficulty into the femoral canal. Retractors were placed to expose the acetabulum. The labrum and central soft tissues were removed. Reaming was performed initially going up in 2 mm increments, then 1 mm increments until good bite was obtained with an odd sized reamer. The cup 1 mm larger than the last reamer was then inserted using the appropriate anteversion guides. The cup was further stabilized with a single screw. A trial neutral liner was placed. The broach was placed in the canal. A trial head and neck were then placed and the hip relocated and checked for leg length and stability. An intraoperative film confirmed the component position and no evidence of fracture. The patient was stable in the position of sleep, of squatting, and could be put through a range of motion with 45 degrees internal rotation without dislocation. At 90 degrees flexion, internal rotation to 70? was possible before dislocation. This was felt to be satisfactory and the appropriate components were opened, and the trials were removed. The acetabular liner was impacted into position. The final stem was then impacted into the prepared femoral canal. A brief Betadine soak was performed while trialing with head options. The hip was meticulously irrigated with normal saline. Finally the femoral head was impacted onto the stem. The acetabulum was cleared of all material and the hip relocated one final time. The capsulomuscular flap was then repaired to the greater trochanter though an awl hole using the tag sutures. The short external rotators were repaired with a nonabsorbable suture. A deep drain was placed and brought out anteriorly. The fascia christofer was closed with Vicryl. The subcutaneous layer was closed with barbed sutures and surgical glue. An Aquacel Ag dressing was applied and the patient was taken to recovery having tolerated the procedure well. Complications: none Post-operative Condition: stable Disposition: Acute Care Plan for aftercare: The patient will be maintained on a standard total hip replacement protocol with weight bearing as tolerated and posterior hip precautions. The patient will receive Aspirin and sequential compression devices for DVT prophylaxis. The patient will be discharged home when safe for the home environment.
--- NOTE | 2022-12-30 07:46 | DI.RAD.S_ITS ---
PROCEDURE: XR PELVIS 1-2V INDICATIONS: right total hip TECHNIQUE: Intra-operative view of the pelvis and hip acquired. COMPARISON: None. FINDINGS: Bones: Intraoperative devices prior to placement of arthroplasty prostheses are in expected positions. No fractures or suspicious bony lesions. Soft tissues: Overlying surgical retractors are present, along with other intraoperative changes. IMPRESSION: Intraoperative image of pelvis shows right total hip arthroplasty in progress. Dictated by: Lexa Weaver M.D. on 12/30/2022 at 9:45 Approved by: Lexa Weaver M.D. on 12/30/2022 at 9:45
[2022-12-30] MEDS: CEFAZOLIN 2 GM/100 ML PREMIX 100 ML IV ×3 (08:09→23:15)
[2022-12-30] MEDS: TRANEXAMIC ACID 1,000 MG VIAL 1000 MG INJ ×2 (08:10→09:38)
--- NOTE | 2022-12-30 08:23 | SUR.OPER ---
Lateral on padded OR bed. Gel axillary roll. Arms secured on padded armboard with pillow supporting top arm. Padded hip positioner braces x4 - anterior and posterior chest and pelvis. Additional gel pad used anterior pelvis. Gel pad under bottom leg from knee to foot and secured with tape over sheet. Pt positioned per direction and supervision of Dr Cruz.
[2022-12-30] MEDS: BUPIVACAINE 0.25% (PF) 60 ML, EPINEPHrine 0.3 MG INJ (08:27)
[2022-12-30] MEDS: BUPIVACAINE LIPOSOME 266 MG/20 ML VIAL INJ (08:28)
[2022-12-30] MEDS: EPINEPHrine 1 MG/ML IRR (08:30)
[2022-12-30] MEDS: SODIUM CHLORIDE IRRIG SOLUTION 250 ML, EPINEPHrine 1 MG IRR (09:43)
--- NOTE | 2022-12-30 10:00 | DI.RAD.S_ITS ---
PROCEDURE: XR HIP W PEL IF DONE RT 2V INDICATIONS: RIGHT TOTAL HIP TECHNIQUE: AP pelvis and lateral view of the right hip acquired. COMPARISON: None. FINDINGS: Bones: Patient is status post right hip arthroplasty, with hardware components in expected positions. The hip joint appears congruent. The visualized bony structures appear intact. Soft tissues: Overlying postoperative changes are noted. No suspicious soft tissue densities. IMPRESSION: Expected immediate postoperative appearance, status post total right hip arthroplasty. Dictated by: Noel Schneider M.D. on 12/30/2022 at 12:24 Approved by: Noel Schneider M.D. on 12/30/2022 at 12:25
[2022-12-30] MEDS: OXYCODONE IR 5 MG TABLET PO ×2 (10:17→23:14)
[2022-12-30] MEDS: OXYCODONE IR 10 MG TABLET PO ×3 (12:03→20:17)
[2022-12-30] MEDS: IBUPROFEN 400 MG TABLET PO ×3 (12:04→23:14)
[2022-12-30] MEDS: ACETAMINOPHEN 325 MG TABLET 650 MG PO ×3 (12:05→23:14)
[2022-12-30] MEDS: LACTATED RINGERS 1,000 ML 125 ML IV ×2 (12:10→17:14)
[2022-12-30] MEDS: HYDROMORPHONE 0.5 MG INJ IV ×2 (13:49→17:12)
[2022-12-30] MEDS: ATORVASTATIN 20 MG TABLET 40 MG PO (20:06)
[2022-12-30] MEDS: DOCUSATE 100 MG CAPSULE PO (20:06)
[2022-12-30] MEDS: ASPIRIN EC 81 MG TABLET PO (20:06)
--- NOTE | 2022-12-30 20:14 | PC.NURSE ---
Pt is A&OX3, VSS, afebrile on RA. Dressing to R hip, aquacel c/d/I. He is able to void this afternoon,and ambulate in villar. He is tolerating meals well. He reports pain well controlled with prn IV dilaudid and prn 10 mg prn oxycodone. Continuous monitoring.
[2022-12-31] MEDS: OXYCODONE IR 10 MG TABLET PO (01:50)
[2022-12-31] MEDS: LACTATED RINGERS 1,000 ML 125 ML IV (03:59)
[2022-12-31 04:00] VITALS: BP 131/85; PULSE 82; RESP 16; TEMP 36.5; O2SAT 95
[2022-12-31 06:00] LABS: Hematocrit 34.5 % (41-53); Hemoglobin 11.9 g/dL (13.5-17.5)
[2022-12-31] MEDS: IBUPROFEN 400 MG TABLET PO (06:54)
[2022-12-31] MEDS: ACETAMINOPHEN 325 MG TABLET 650 MG PO (06:55)
--- NOTE | 2022-12-31 06:55 | P.DS_ITS ---
History of Present Illness History of Present Illness Date Patient Seen: 12/31/22 Time Patient Seen: 06:55 Chief complaint: Right PEPPER *OPB* Narrative: Operative Date/Time/Diagnoses Date of procedure: 12/30/22 Time of procedure: 07:55 Pre-op diagnosis: right hip post traumatic OA Post-op diagnosis: same Procedure & Clinicians Procedure: Right total hip arthroplasty, posterior approach Same procedure as scheduled: Yes Indications: The patient has had progressively worsening right hip pain with radiographic changes consistent with arthritis. Non-operative management has failed and the patient has requested total hip replacement. The risks, benefits and alternatives to surgery were discussed with the patient prior to proceeding. Risks discussed included, but were not limited to, failure to relieve pain, leg length discrepancy, dislocation, stiffness, infection, nerve damage, deep venous thrombosis, pulmonary embolism, stroke, coma, heart attack, permanent paralysis and , as well as the potential need for eventual revision of the prosthetic. Surgeon: Leeann Cruz Heavy Coil Winder: Jarad Hillman Anesthesia Type: Spinal and Sedation Operative Notes Findings: Severe right hip osteoarthritis, good stability of the broach in the femur, good overall joint stability Closure Type: primary Specimen(s): none sent Prosthetic devices, grafts, tissues, transplants, or devices: Cruz and nephew size 60 R3 cup, neutral poly liner, 36+ 0 Oxinium head, size 10 standard offset anthology,one 6.5 mm screw Estimated Blood Loss (mL): 250 Discharge Providers Provider Discharge Date: 12/31/22 Primary care physician: Zachary Walker MD Consults: 12/30/22 06:00 Consult to Anesthesiology Routine Comment: Consulting Provider: Anesthesiologist Reason for consultation: Regional block for post operative pain control 12/30/22 07:42 Consult to Anesthesiology Routine Comment: Consulting Provider: Anesthesiologist Reason for consultation: Regional block for post operative pain control 12/30/22 11:11 Consult to Discharge Planning Routine Comment: Consult to Physical Therapy Evaluate & Treat Comment: Physician Instructions: post op PEPPER protocol Discharge provider: Georgie Ha PA-C Summary Hospital Course Discharge Diagnosis: Right hip post-traumatic OA, s/p [facility] total hip arthroplasty Hospital Course: Mr Springer's hospital course was unremarkable. On the morning of POD# 1, he was getting in and out of bed to void and walking the villar without difficulty. He denied N/V. His pain was well-controlled with oral medication. He had not yet been evaluated by PT, but he wanted to go home. Exam Vital Signs (past 8 hours): - 12/30/22 23:57 12/31/22 04:00 Temperature 97.2 F L 97.7 F Pulse Rate 75 82 Respiratory Rate 16 16 Blood Pressure 164/86 H 131/85 Pulse Oximetry 97 95 Oxygen Flow Rate 0 0 Oxygen Delivery Method Room Air Oxygen Flow Rate 0 Narrative Exam Narrative: 5/5 strength in hip flexors, quadriceps, hamstrings, DF, PF, EHL on right. Sensation to light touch intact throughout RLE. Calves soft, compressible, nontender and without palpable cords or masses. Aquacel dressing CDI. Objective Labs 12/31/22 05:50 Labs: Laboratory Results - last 24 hr 12/31/22 05:50 Hgb 11.9 L Hct 34.5 L PFSH Medical History (Updated 12/25/22 @ 12:22 by Basia Egan RN) COVID-19 virus infection (2020) Hyperlipidemia Hypertension Osteoarthritis Surgical History (Updated 12/25/22 @ 12:08 by Basia Egan RN) H/O shoulder surgery History of orthopedic surgery Hx of hernia repair Family History Mother No pertinent past medical history Father No pertinent past medical history Social History household members: children Smoking Status: Never smoker alcohol intake: current Discharge Assessment & Plan Assessment and Plan Assessment: Right hip post-traumatic OA, s/p righ total hip arthroplasty Plan of Treatment: Discharge home after PT if PT feels it is appropriate. Pt has all post-op medications. ASA 81 mg BID x 6 weeks for VTE prophylaxis. Outpt PT, f/u in office as scheduled in 2 weeks. Discharge Plan Discharge Plan Patient Disposition: Home Discharge orders & Medications Discharge Orders: Discharge (Order); Ordered 12/31/22 Ordered By: Georgie Ha Prescriptions: Continued atorvastatin 40 mg Tablet 40 mg PO BEDTIME lisinopril 20 mg Tablet 20 mg PO DAILY ibuprofen 200 mg Tablet 400 mg PO DAILY PRN (Reason: Pain) hydrochlorothiazide 25 mg Tablet 25 mg PO DAILY Follow up/Referrals: Leeann Cruz MD [Physician] - As previously scheduled (Follow up w/ Dr Cruz on 01/15/2023 @ 2:00 pm at [facility] office in [place].) Zachary Walker MD [Primary Care Provider] - Diet/Activity/Treatments Diet: Diet as Tolerated Activity: Weight bearing as tolerated to right leg. Posterior hip precautions. Cold/Heat Therapy: Ice to hip as needed for pain. Skin/Wound/Dressing Care Report to your healthcare provider any signs of infection, such as:: chills, fever, night sweats, unusual drainage and unusual redness Dressing: May shower. Leave Aquacel dressing in place until follow up in office. No bathing or otherwise soaking incision. Call the office if the dressing becomes saturated inside. Visit Report/Discharge Packet Instructions: DI for Hip Replacement Stand Alone Forms: Patient Portal/API, Surgery Discharge Discharge Data Primary Care Provider: Zachary Walker Attending Provider: Leeann Cruz
[2022-12-31] MEDS: OXYCODONE IR 5 MG TABLET PO (06:56)
[2022-12-31 07:35] VITALS: BP 136/84; PULSE 81; RESP 16; TEMP 36.4; O2SAT 94
--- NOTE | 2022-12-31 08:15 | PT.IIE ---
Current Diagnoses Unilateral post-traumatic osteoarthritis, right hip (12/30/22) Surgery Performed Operation Date: 12/30/22 07:45 Actual Procedures p Total Hip Arthroplasty(Right) - Leeann Cruz MD Surgical History (Last Updated 12/25/22 @ 12:07 by Basia Egan, RN) H/O shoulder surgery History of orthopedic surgery Hx of hernia repair Medical History (Last Updated 12/25/22 @ 12:22 by Basia Egan RN) COVID-19 virus infection (2020) Hyperlipidemia Hypertension Osteoarthritis Physical Therapy Inpatient Evaluation/Re-Eval M1 PT/OT-IP Prior Functional Status Start: 12/31/22 07:31 Freq: NEEDED Status: Discharge Protocol: Document 12/31/22 12:22 [facility] (Rec: 12/31/22 12:30 [facility] [id number]) Medical Review Prior Functional Status Medical History Reviewed Yes Diet/Fluid Consistency Regular Communication WNL Mobility and Gait WNL Activities of Daily Living and IADL's indep Social History Household Members children Living Arrangements Apartment/Condo Number of Floors (Floors) One Floor Number of Stairs To Enter/Railing? 2 ETTA w/R rail Home Environment Standard Height Toilet,Tub/ Shower Home Equipment Four Wheel Walker,Grab Bars In Shower Additional Social History Comment head of bed does elevate M2 PT-IP Current Condition Start: 12/31/22 07:31 Freq: NEEDED Status: Discharge Protocol: Document 12/31/22 12:22 [facility] (Rec: 12/31/22 12:30 [facility] [id number]) Physical Therapy Current Condition Current Condition Evaluation Date 12/31/22 Treatment Diagnosis R PEPPER M3 PT-IP Subjective Start: 12/31/22 07:31 Freq: NEEDED Status: Discharge Protocol: Document 12/31/22 12:22 [facility] (Rec: 12/31/22 12:30 [facility] [id number]) Subjective Physical Therapy Visit Type Type Initial Evaluation Visit Start Time 07:33 Visit Stop Time 08:14 Total Visit Minutes 41 Number of NETWORK INTERN Visits 0 M4 PT-IP Mobility and Gait Start: 12/31/22 07:31 Freq: NEEDED Status: Discharge Protocol: Document 12/31/22 12:22 [facility] (Rec: 12/31/22 12:30 [facility] [id number]) PT-Bed Mobility Assessment Supine to Sit Supine to Sit Standby Assistance,Head of Bed Elevated Scooting Scooting to Edge of Bed Standby Assistance PT-Transfer Assessment Sit to and From Stand Sit to and from Stand Standby Assistance,Use of Upper Extremities Equipment Transfer Assistive Device Gait Belt,4 Wheeled Walker Orthotic/Prosthetic Devices or Brace: No Gait Assessment Gait Gait Assistance Required: Standby Assistance Distance (Feet) 225 Able to Maintain Weight Bearing Status Yes During Gait Assistive Devices Assistive Device 4 Wheeled Walker Gait Deviations General Gait Pattern Antalgic,Decreased Stride Length Factors Limiting Gait Function Factors Limiting Gait Function Decreased Strength,Pain Stair Climbing Assessment Evaluation Level of Assist On Stairs Standby Assistance Devices Stair Climbing Assistive Devices Right Railing Technique/Endurance Stair Climbing Direction Ascend and Descend Stair Climbing Technique Step to Step Number of Steps Climbed 3 Query Text: Stair Climbing Set # Repetitions (reps) 1 Comments Stair Climbing Comments cane for down to show pt how cane could be used PT-Balance Assessment Sitting Balance and Reactions Static Sitting Balance Ability Normal Dynamic Sitting Balance Ability Normal Standing Balance and Reactions Static Standing Balance Ability Good Dynamic Standing Balance Ability Good Device Used 4WW M5 PT-IP Objective Assessments Start: 12/31/22 07:31 Freq: NEEDED Status: Discharge Protocol: Document 12/31/22 12:22 [facility] (Rec: 12/31/22 12:30 [facility] [id number]) Orientation Orientation/Cognition Level of Alertness Alert Orientation Name,Age,Birthday,Month,Date, Year,Day of Week,Place, Situation Language Function Ability No Deficits Noted Safety Awareness Understands Safety Issues Memory Description No Deficits Noted Gross Range of Motion Lower Extremity ROM Assessment Right Impaired Strength Lower Extremity Strength Assessment Right Impaired M6 PT-IP Treatment Start: 12/31/22 07:31 Freq: NEEDED Status: Discharge Protocol: Document 12/31/22 12:22 [facility] (Rec: 12/31/22 12:30 [facility] [id number]) Physical Therapy Treatment Exercises Exercises Ankle Pumps,Gluteal Sets,Quad Sets,Heel Slides,Supine Hip Abduction Education Education Provided Precautions,Weight Bearing Status,Post-Op Packet,Safety Other Treatments Other Treatment Performed edu on all info in packet, a few reps of ea exercise performed w/education M7 PT-IP Assessment and Plan Start: 12/31/22 07:31 Freq: NEEDED Status: Discharge Protocol: Document 12/31/22 12:22 [facility] (Rec: 12/31/22 12:30 [facility] [id number]) PT Summary Assessment and Plan Potential Rehabilitation Potential Excellent Status of Condition at Evaluation Evolving Summary Impairments Pain,Strength,Balance,Gait, Activity Tolerance Assessment Summary Pt presents day 1 S/p R post PEPPER with overall good pain control and pt very motivated to return home. He did well with all mobiity w/PT today and verbalized understanding of all education along w/ packet information and exercises. He is cleared for mobility aspect w/PT for home safely once medically stable. Goals Bed Mobility Goal Independent Transfer Goal Independent Gait Goal Independent Gait Distance 150ft Other Goals up/down 2 stairs w/rail SBA Days to Meet Goals 2 Frequency of Treatment Frequency Of Treatment Twice a Day Treatment Plan Physical Therapy Treatment Plan Bed Mobility Training,Transfer Training,Gait Training, Therapeutic Exercise,Balance Retraining,Post Op Education, Discharge Planning, Neuromuscular Re-ed, Coordination Retraining Precautions Posterior Hip Precautions No Hip Flexion > 90 degrees,No Hip Internal Rotation,No Hip Adduction Weight Bearing Status Weight Bearing Status Weight Bear as Tolerated Recommendations To Nursing Amount of Assist Needed Standby Assistance Discharge Recommendations PT Discharge Recommendations Home with Assistance, Outpatient PT Other Discharge Recommendations pt encouraged to get: bilingual receptionist, sock aide, shoe horn, long hand shower brush, raised toilet seat and tub bench. Pt was shopping on [employer] as PT went to get walker and discussed 5 in seat would be better tahn 3 in for toilet since he is tall. Pt plans to order everything else or have son pick it up today. Transportation Needs at Discharge Private Vehicle
[2022-12-31] MEDS: lisinopriL 20 MG TABLET PO (08:57)
[2022-12-31] MEDS: hydroCHLOROthiazide 25 MG TABLET PO (08:57)
[2022-12-31] MEDS: DOCUSATE 100 MG CAPSULE PO (08:57)
[2022-12-31] MEDS: ASPIRIN EC 81 MG TABLET PO (08:57)
--- NOTE | 2022-12-31 10:11 | PC.NURSE ---
Patients dressing to hip cdi, patient had a shower, cms wnl, and he has discharged to home. IV taken out and down to car with [employer]ADER.
== END 2022-12-31 10:00 | disposition home or self-care (01) ==
LOC: OR 05:57 → AC 05:57
PROVIDERS: PCP Family Medicine; Referring Provider Orthopaedic Surgery; Visit Provider Orthopaedic Surgery
PROC: 0SR90JZ Replacement of Right Hip Joint with Synthetic Substitute, Open Approach (ICD-10-PCS; CPT 27130; principal; 2022-12-30 07:45)
DX: M16.11 Unilateral primary osteoarthritis, right hip (principal)
CPT/HCPCS: 27130; 36415; 72170; 73502; 85014; 85018; 87635; 97116; 97162; 97535; C1776; C9803; C9290; J0171; J0690; J1170; J2250; J2704; J3010